=== PATIENT | female | born 1945 | race Two or more races ===

== ENCOUNTER 2016-05-24 18:43 | Emergency (ER) | payer MEDICARE, OTHER ==
[~2016-05-24] VITALS: Ht 152.4 cm; Wt 59.0 kg
[~2016-05-24 18:43] MED LIST: ARMOUR THYROID30 MG ORAL; ASPIRIN EC325 MG ORAL; BENICAR20 MG ORAL; DIOVAN80 MG ORAL; GUAIFENESIN DM118 M1 ORAL; GUAIFENESIN-CO118 ML ORAL; INDERAL LA60 MG ORAL; MECLIZINE HCL25 MG ORAL; METFORMIN HCL500 M1 ORAL; NORCO 5-325 TA1 EACH ORAL; PANTOPRAZOLE SO40 MG ORAL; PLAQUENIL200 MG ORAL; TOPIRAMATE25 MG ORAL; ZANTAC150 MG ORAL; ZOCOR10 MG ORAL
[2016-05-24] MEDS ORDERED: Bacitracin Oint UD TOPIC ONE (19:45)
[2016-05-24] MEDS ORDERED: Lidocaine 1% MPF 10mg/ml 5ml IM ONE (19:45)
[2016-05-24] MEDS ORDERED: CEPHALEXIN500 MG ORAL (20:05)
[2016-05-24] MEDS ORDERED: Cephalexin 500mg cap ORAL ONE (20:15)
[2016-05-24 20:36] VITALS: BP 130/67
[2016-05-24 20:38] VITALS: BP 130/76
--- NOTE | 2016-05-25 17:18 | Emergency Room Report ---
History of Present Illness General Chief Complaint: Skin Rash/Abscess Present Illness HPI The patient is a 71-year-old female presenting with left ring finger pain which began 2 days prior. Patient noticed swelling and redness to the area. Patient denies any known injury and denies biting her fingernails. Pain is worse with touch. It is described as an 8/10 dull ache. The patient denies any numbness or tingling of the area. Patient denies other symptoms including nausea, vomiting, fever, chills Allergies: Coded Allergies: NO KNOWN ALLERGIES (Unverified Allergy, Unknown, 03/14/15) Patient History Past Medical History: see triage record Pertinent Family History: none Reviewed Nursing Documentation: PMH: Agreed, PSxH: Agreed Nursing Documentation-PMH Hx Cardiac Problems: Yes Hx Hypertension: Yes Hx Pacemaker: No - LUPUS Hx Diabetes: Yes Hx Gastrointestinal Problems: Yes Hx Dialysis: No Review of Systems All Other Systems: negative except mentioned in HPI Physical Exam Vital Signs Date Time Temp Pulse Resp B/P Pulse Ox O2 Delivery O2 Flow Rate FiO2 05/24/16 18:53 98.2 81 20 130/67 100 Room Air Sp02 EP Interpretation: reviewed, normal General Appearance: no apparent distress, alert, GCS 15, non-toxic Head: normocephalic, atraumatic Eyes: bilateral eye PERRL, bilateral eye normal inspection ENT: hearing grossly normal, normal pharynx, no angioedema, normal voice Neck: full range of motion, supple/symm/no masses Musculoskeletal: back normal, gait/station normal, normal range of motion, swelling, tender - TTP over lateral ring folder nailfold Neurologic: alert, oriented x3, responsive, motor strength/tone normal, sensory intact, speech normal Skin: normal color, no rash, warm/dry, well hydrated Lymphatic: no adenopathy Procedures Incision and Drainage Incision and Drainage : Consent: Verbal Site: L ring finger Blade Size: 11 I & D Procedure: betadine prep, sterile drapes applied, sterile dressing applied Wound Location: upper extremity Wound's Depth, Shape: superficial Wound Length (cm): 1 Wound Explored: contaminated Irrigated w/ Saline (ccs): 50 Anesthesia: 1% Lidocaine Volume Anesthetic (ccs): 4 Splint Applied?: No Sling Applied?: No Patient Tolerated: Well Complications: None Medical Decision Making PA Attestation Dr. Nassar is my supervising physician. Patient management was discussed with my supervising physician Diagnostic Impression: Primary Impression: Paronychia ER Course The patient is a 71-year-old female presenting with left ring finger pain which began 2 days prior Differential diagnosis considered: Felon, paronychia, sprain PE: vitals WNL. NAD TTP over lateral ring folder nailfold with erythema and edema. Area is fluctuant. Full AROM. Betadine prep was used to clean the skin and surrounding area. One percent lidocaine without epinephrine was used for digital block. A #11 blade was used to make an incision at the base of the nail. Once the incision was made, purulent material was expressed with blood. The wound was then cleaned and sterile dressing applied. The patient will be discharged home with a prescription for Keflex. ER precautions are given Last Vital Signs Date Time Temp Pulse Resp B/P Pulse Ox O2 Delivery O2 Flow Rate FiO2 05/24/16 20:38 78 16 130/76 97 Room Air 05/24/16 20:36 98.0 Status: improved Disposition: HOME, SELF-CARE Condition: Improved Scripts Cephalexin* (KEFLEX*) 500 Mg Capsule 500 MG ORAL EVERY 6 HOURS, #28 CAP Prov: SERGEY RAMOS 05/24/16 Patient Instructions: Paronychia Additional Instructions: I discussed my findings with the patient. All questions and concerns have been answered. Treatment and medication compliance have been addressed. I advised the patient that they need to follow up with PMD in 3-5 days. Return to ED if symptoms worsen, new symptoms arise, or if needed for any reason. Patient verbalized understanding of discharge instructions. SERGEY RAMOS May 25, 2016 17:18
== END 2016-05-24 20:40 | disposition home or self-care (01) ==
LOC: EMR 19:50
DX: L03.012 Cellulitis of left finger (principal); E11.9 Type 2 diabetes mellitus without complications; I10 Essential (primary) hypertension; M32.9 Systemic lupus erythematosus, unspecified
CPT/HCPCS: 10060; 99284

== ENCOUNTER 2016-09-14 14:24 | Emergency (ER) | payer MEDICARE, OTHER ==
[~2016-09-14] VITALS: Ht 152.4 cm; Wt 59.0 kg
[~2016-09-14 14:24] MED LIST changes: +CEPHALEXIN500 MG ORAL
[2016-09-14] MEDS ORDERED: ISOSORBIDE MONO10 MG PO (14:46)
[2016-09-14] MEDS ORDERED: CARDIZEM60 MG ORAL (14:46)
[2016-09-14] MEDS ORDERED: AMOXICILLIN500 MG ORAL (15:06)
[2016-09-14] MEDS ORDERED: PROMETHAZI6.25 MG/1 ORAL (15:06)
[2016-09-14 15:08] VITALS: BP 109/70
[2016-09-14 15:12] VITALS: BP 109/70
--- NOTE | 2016-09-14 18:24 | Emergency Room Report ---
History of Present Illness General Chief Complaint: Flu Like Symptoms Source: Patient Present Illness HPI 71-year-old female presents to ED for evaluation. States the last 4 days she's had a productive cough. Denies sore throat or earache. Denies fevers or chills. Denies sick contacts or recent travel. No other aggravating or relieving factors. Denies any other associated symptoms Allergies: Coded Allergies: NO KNOWN ALLERGIES (Unverified Allergy, Unknown, 03/14/15) Patient History Past Medical History: DM, HTN Past Surgical History: none Pertinent Family History: none Social History: Denies: alcohol use, drug use, smoking Now: No Immunizations: UTD Reviewed Nursing Documentation: PMH: Agreed, PSxH: Agreed Nursing Documentation-PMH Hx Cardiac Problems: Yes Hx Hypertension: Yes Hx Pacemaker: No - LUPUS Hx Diabetes: Yes Hx Gastrointestinal Problems: Yes Hx Dialysis: No Review of Systems All Other Systems: negative except mentioned in HPI Physical Exam Vital Signs Date Time Temp Pulse Resp B/P Pulse Ox O2 Delivery O2 Flow Rate FiO2 09/14/16 14:42 98.4 67 20 109/70 100 Room Air Sp02 EP Interpretation: reviewed, normal General Appearance: no apparent distress, alert, GCS 15, non-toxic Head: normocephalic, atraumatic Eyes: bilateral eye PERRL, bilateral eye normal inspection ENT: hearing grossly normal, normal pharynx, no angioedema, normal voice Neck: full range of motion, supple/symm/no masses Respiratory: chest non-tender, lungs clear, normal breath sounds, speaking full sentences Cardiovascular #1: regular rate, rhythm, no edema Cardiovascular #2: 2+ carotid (R), 2+ carotid (L), 2+ radial (R), 2+ radial (L) , 2+ dorsalis pedis (R), 2+ dorsalis pedis (L) Gastrointestinal: normal bowel sounds, non tender, soft, non-distended, no guarding, no rebound Rectal: deferred Genitourinary: normal inspection, no CVA tenderness Musculoskeletal: back normal, gait/station normal, normal range of motion, non- tender Neurologic: alert, oriented x3, responsive, motor strength/tone normal, sensory intact, speech normal Psychiatric: judgement/insight normal, memory normal, mood/affect normal, no suicidal/homicidal ideation Reflexes: 3+ bicep (R), 3+ bicep (L), 3+ tricep (R), 3+ tricep (L), 3+ knee (R) , 3+ knee (L) Skin: normal color, no rash, warm/dry, well hydrated Lymphatic: no adenopathy Medical Decision Making Diagnostic Impression: Primary Impression: Atypical pneumonia ER Course Hospital Course 71-year-old male presents to ED complaining of cough, runny nose Differential diagnoses include: URI, pharyngitis, otitis media, asthma Clinical course Patient placed on stretcher. After initial history, physical exam reveals an elderly female in no acute distress. Bilateral TM unremarkable. No pharyngeal erythema. No tonsillar exudates. No lymphadenopathy. lungs clear. abdomen soft. Presentation consistent with atypical pneumonia. Patient appears well, nontoxic. Can be discharged to home. We will treat with antibiotics Diagnosis - atypical pneumonia Stable and discharged home prescription for amoxicillin, cough syrup. Instructed to followup with PMD. Return to ED if symptoms recur or worsen Last Vital Signs Date Time Temp Pulse Resp B/P Pulse Ox O2 Delivery O2 Flow Rate FiO2 09/14/16 15:12 98.4 75 20 109/70 100 Room Air Status: improved Disposition: HOME, SELF-CARE Condition: Stable Scripts Promethazine Hcl (PROMETHAZINE HCL*) 6.25 Mg/5 Ml Syrup 5 ML ORAL Q6H, #120 ML 0 Refills Prov: JOSUÉ DIAZ M.D. 09/14/16 Amoxicillin* (AMOXIL*) 500 Mg Capsule 500 MG ORAL THREE TIMES A DAY, #21 CAP Prov: JOSUÉ DIAZ M.D. 09/14/16 Referrals: NOT CHOSEN IPA/,REFERRING (PCP) Patient Instructions: Community-Acquired Pneumonia, Adult, [id number] JOSUÉ DIAZ M.D. Sep 14, 2016 18:24
== END 2016-09-14 15:12 | disposition home or self-care (01) ==
LOC: EMR 15:01
DX: J18.9 Pneumonia, unspecified organism (principal); I10 Essential (primary) hypertension; M32.9 Systemic lupus erythematosus, unspecified; E11.9 Type 2 diabetes mellitus without complications
CPT/HCPCS: 99284

== ENCOUNTER 2016-11-06 15:52 | Emergency (ER) | payer MEDICARE, OTHER ==
[~2016-11-06] VITALS: Ht 142.2 cm; Wt 73.5 kg
[~2016-11-06 15:52] MED LIST changes: +AMOXICILLIN500 MG ORAL; +CARDIZEM60 MG ORAL; +ISOSORBIDE MONO10 MG PO; +PROMETHAZI6.25 MG/1 ORAL
[2016-11-06 16:40] VITALS: BP 120/58
[2016-11-06 16:50] LABS: BASOPHILS % (AUTO) 1.4 % (0.0-2.0); EOSINOPHILS % (AUTO) 2.4 % (0.0-3.0); LYMPHOCYTES % (AUTO) 38.5 % (20.0-45.0); MEAN CORPUSCULAR HEMOGLOBIN 31.3 PG (27.0-31.0); MEAN CORPUSCULAR HGB CONC 35.3 G/DL (32.0-36.0); MEAN CORPUSCULAR VOLUME 89 FL (80-99); MEAN PLATELET VOLUME 7.4 FL (6.5-10.1); MONOCYTES % (AUTO) 10.5 % (1.0-10.0); NEUTROPHILS % (AUTO) 47.2 % (45.0-75.0); PLATELET COUNT 218 K/UL (150-450); RED BLOOD COUNT 4.23 M/UL (4.20-5.40); RED CELL DISTRIBUTION WIDTH 11.7 % (11.6-14.8); WHITE BLOOD COUNT 6.5 K/UL (4.8-10.8)
[2016-11-06 16:51] LABS: APPEARANCE,URINE CLEAR; KETONES,URINE NEGATIVE (NEGATIVE); LEUKOCYTE ESTERASE ,URINE NEGATIVE (NEGATIVE); NITRITE,URINE NEGATIVE (NEGATIVE); PH,URINE 5 (4.5-8.0); PROTEIN,URINE NEGATIVE (NEGATIVE); UROBILINOGEN,URINE NORMAL MG/DL (0.0-1.0)
[2016-11-06 16:55] LABS: RBC,URINE 0-2 /HPF (0 - 2); WBC,URINE 0-2 /HPF (0 - 2)
[2016-11-06 16:56] LABS: SQUAMOUS EPITHELIAL CELL,UR OCCASIONAL /LPF (NONE/OCC)
[2016-11-06 17:02] LABS: INR 0.9 (0.9-1.1); PROTHROMBIN TIME 9.5 SEC (9.30-11.50)
[2016-11-06 17:24] LABS: TROPONIN I < 0.30 ng/mL (<=0.30)
[2016-11-06 17:27] LABS: ALANINE AMINOTRANSFERASE 13 U/L (3-33); ALBUMIN/GLOBULIN RATIO 1.3 (1.0-2.7); ANION GAP 11 (5-15); ASPARTATE AMINO TRANSFERASE 19 U/L (5-40); CALCIUM 8.3 mg/dL (8.6-10.2); CARBON DIOXIDE 26 mEQ/L (20-30); CHLORIDE 102 mEQ/L (98-107); CREATININE 0.8 mg/dL (0.5-0.9); GLOMERULAR FILTRATION RATE > 60 mL/min (>60); HEMOLYSIS 7; LIPASE 51 U/L (< 60); SODIUM 139 mEQ/L (135-145); TOTAL PROTEIN 6.7 g/dL (6.6-8.7)
[2016-11-06 18:00] VITALS: BP 129/66
[2016-11-06] MEDS ORDERED: NITROFURANTOIN100 M2 ORAL (18:33)
[2016-11-06] MEDS ORDERED: IBUPROFEN600 MG ORAL (18:33)
[2016-11-06 18:39] VITALS: BP 120/58
--- NOTE | 2016-11-06 22:10 | Emergency Room Report ---
Physical Exam Vital Signs Date Time Temp Pulse Resp B/P Pulse Ox O2 Delivery O2 Flow Rate FiO2 11/06/16 16:04 99.0 60 15 120/58 99 Room Air Sp02 EP Interpretation: reviewed, normal General Appearance: no apparent distress, alert, GCS 15, non-toxic Head: normocephalic, atraumatic Eyes: bilateral eye PERRL, bilateral eye normal inspection ENT: hearing grossly normal, normal pharynx, no angioedema, normal voice Respiratory: chest non-tender, lungs clear, normal breath sounds, speaking full sentences Cardiovascular #1: regular rate, rhythm, no edema Gastrointestinal: tenderness - suprapubic Genitourinary: normal inspection, no CVA tenderness Musculoskeletal: back normal, gait/station normal, normal range of motion, non- tender Neurologic: alert, oriented x3, responsive, motor strength/tone normal, sensory intact, speech normal Psychiatric: judgement/insight normal, memory normal, mood/affect normal, no suicidal/homicidal ideation Skin: normal color, no rash, warm/dry, well hydrated Medical Decision Making PA Attestation Dr. Keane is my supervising physician. Patient management was discussed with my supervising physician Diagnostic Impression: Primary Impression: Cystitis ER Course The patient is a 71 yo F presenting for abdominal pain DDx considered but not limited to: cystitis, pyelonephritis, cystocele, constipation, diverticulitis, among others PE: afebrile. NAD + Suprapubic TTP. Abd is soft. Normal BS. No CVA tenderness. Otherwise exam unremarkable. Blood work unremarkable. No leukocytosis. UA not consistent with UTI. CT scan has findings consistent with cystitis. Due to patient's history of frequent UTIs and CT findings, pt will be treated for UTI. ER precautions given. She will FU with PMD Laboratory Tests Test 11/06/16 16:35 White Blood Count 6.5 K/UL (4.8-10.8) Red Blood Count 4.23 M/UL (4.20-5.40) Hemoglobin 13.3 G/DL (12.0-16.0) Hematocrit 37.6 % (37.0-47.0) Mean Corpuscular Volume 89 FL (80-99) Mean Corpuscular Hemoglobin 31.3 PG (27.0-31.0) H Mean Corpuscular Hemoglobin Concent 35.3 G/DL (32.0-36.0) Red Cell Distribution Width 11.7 % (11.6-14.8) Platelet Count 218 K/UL (150-450) Mean Platelet Volume 7.4 FL (6.5-10.1) Neutrophils (%) (Auto) 47.2 % (45.0-75.0) Lymphocytes (%) (Auto) 38.5 % (20.0-45.0) Monocytes (%) (Auto) 10.5 % (1.0-10.0) H Eosinophils (%) (Auto) 2.4 % (0.0-3.0) Basophils (%) (Auto) 1.4 % (0.0-2.0) Prothrombin Time 9.5 SEC (9.30-11.50) Prothrombin Time INR 0.9 (0.9-1.1) PTT 25 SEC (23-33) Urine Color Pale yellow Urine Appearance Clear Urine pH 5 (4.5-8.0) Urine Specific [place] 1.020 (1.005-1.035) Urine Protein Negative (NEGATIVE) Urine Glucose (UA) 4+ (NEGATIVE) H Urine Ketones Negative (NEGATIVE) Urine Occult Blood 1+ (NEGATIVE) H Urine Nitrite Negative (NEGATIVE) Urine Bilirubin Negative (NEGATIVE) Urine Urobilinogen Normal MG/DL (0.0-1.0) Urine Leukocyte Esterase Negative (NEGATIVE) Urine RBC 0-2 /HPF (0 - 2) Urine WBC 0-2 /HPF (0 - 2) Urine Squamous Epithelial Cells Occasional /LPF Urine Bacteria None /HPF (NONE) Sodium Level 139 mEQ/L (135-145) Potassium Level 4.0 mEQ/L (3.4-4.9) Chloride Level 102 mEQ/L (98-107) Carbon Dioxide Level 26 mEQ/L (20-30) Anion Gap 11 (5-15) Blood Urea Nitrogen 14 mg/dL (7-23) Creatinine 0.8 mg/dL (0.5-0.9) Estimate Glomerular Filtration Rate > 60 mL/min (>60) Glucose Level 108 mg/dL (74-106) H Calcium Level 8.3 mg/dL (8.6-10.2) L Total Bilirubin 0.2 mg/dL (0.0-1.2) Aspartate Amino Transferase (AST) 19 U/L (5-40) Alanine Aminotransferase (ALT) 13 U/L (3-33) Alkaline Phosphatase 80 U/L (35-104) Troponin I < 0.30 ng/mL (<=0.30) Total Protein 6.7 g/dL (6.6-8.7) Albumin 3.9 g/dL (3.5-5.2) Globulin 2.8 g/dL Albumin/Globulin Ratio 1.3 (1.0-2.7) Lipase 51 U/L (< 60) Lab Results Impression Unremarkable CT/MRI/US Diagnostic Results CT/MRI/US Diagnostic Results : Imaging Test Ordered: Abd/pelvic CT Impression No acute abnormality identified. Cholecystectomy. Bladder underdistention versus mild wall thickening. Cystitis not excluded and correlation with urinalysis recommended. Small fat-containing left inguinal hernia. Atherosclerotic changes. Approximately 3.4 cm left adnexal hypodense possible cyst. Pelvic ultrasound recommended for further evaluation Last Vital Signs Date Time Temp Pulse Resp B/P Pulse Ox O2 Delivery O2 Flow Rate FiO2 11/06/16 18:39 99.0 61 15 120/58 99 Room Air Status: improved Disposition: HOME, SELF-CARE Condition: Improved Scripts Ibuprofen* (MOTRIN*) 600 Mg Tablet 600 MG ORAL Q8H Y for For Pain, #30 TAB 0 Refills Prov: TERZIANELSIEY P.A. 11/06/16 Nitrofurantoin Monohyd/M-Cryst* (MACROBID 100 MG*) 100 Mg Capsule 100 MG ORAL EVERY 12 HOURS, #14 CAP Prov: TERZIAN,SERGEY P.A. 11/06/16 Patient Instructions: Urinary Tract Infection, Abdominal Pain, Adult Additional Instructions: I discussed my findings with the patient. All questions and concerns have been answered. Treatment and medication compliance have been addressed. I advised the patient that they need to follow up with PMD in 3-5 days. Return to ED if symptoms worsen, new symptoms arise, or if needed for any reason. Patient verbalized understanding of discharge instructions. History of Present Illness General Source: Patient Present Illness HPI The patient is a 71 yo F presenting for abdominal pain which began today. She states that she frequently gets UTIs and this feels similar. She states pain is a 8/10 dull ache to mid lower abdomen and does not radiate. She also admits to increased urinary frequency. She denies other symptoms including N, V, F, hematuria, vaginal DC, back pain, SOB, CP, diarrhea, constipation Allergies: Coded Allergies: NO KNOWN ALLERGIES (Unverified Allergy, Unknown, 03/14/15) Patient History Past Medical History: see triage record Pertinent Family History: none Now: No Reviewed Nursing Documentation: PMH: Agreed, PSxH: Agreed Nursing Documentation-PMH Hx Cardiac Problems: Yes Hx Hypertension: Yes Hx Pacemaker: No - LUPUS Hx Diabetes: Yes Hx Gastrointestinal Problems: Yes Hx Dialysis: No Review of Systems All Other Systems: negative except mentioned in HPI SERGEY RAMOS Nov 06, 2016 22:10
--- NOTE | 2016-11-08 08:18 | Diagnostic Imaging Report ---
Indication: Abdominal pain Technique: CT of the abdomen and pelvis utilizing automated exposure control with intravenous contrast. Venous scanning performed. CT dose: Total DLP 850 mGycm; CTDI vol 18.4 mGy Comparison: None Findings: There is limited evaluation of the bowel without oral contrast. There is a 5 mm cyst in the left lobe of the liver. Cholecystectomy is noted. Adrenal glands, kidneys, spleen and the pancreas are grossly unremarkable the abdominal aorta demonstrates atherosclerotic calcification but is normal in caliber. There is underdistention versus mild thickening of the urinary bladder. A small fat-containing left inguinal hernia is seen. The small bowel loops are normal in caliber. There is a tiny appendicolith. The appendix is otherwise normal. There is colonic diverticulosis but no definitive evidence of diverticulitis a left adnexal hypodense structure measures 3.4 cm. Degenerative changes of the spine are seen. There is grade 1 anterolisthesis of L5 on S1. Impression: No acute abnormality identified. Cholecystectomy. Bladder underdistention versus mild wall thickening. Cystitis not excluded and correlation with urinalysis recommended. Small fat-containing left inguinal hernia. Atherosclerotic changes. Approximately 3.4 cm left adnexal hypodense possible cyst. Pelvic ultrasound recommended for further evaluation. Other findings as above. The CT scanner at [facility] is accredited by the [employer] and the scans are performed using protocols designed to limit radiation exposure to as low as reasonably achievable to attain images of sufficient resolution adequate for diagnostic evaluation.
== END 2016-11-06 18:39 | disposition home or self-care (01) ==
LOC: EMR 16:21
DX: N30.90 Cystitis, unspecified without hematuria (principal); Z90.49 Acquired absence of other specified parts of digestive tract; K40.90 Unilateral inguinal hernia, without obstruction or gangrene, not specified as recurrent; I10 Essential (primary) hypertension; E11.9 Type 2 diabetes mellitus without complications
CPT/HCPCS: 36415; 74177; 80053; 81003; 83690; 84484; 85025; 85610; 85730; 99284; Q9967

== ENCOUNTER 2017-02-07 18:58 | Emergency (ER) | payer MEDICARE, OTHER ==
[~2017-02-07] VITALS: Ht 154.9 cm; Wt 69.9 kg
[~2017-02-07 18:58] MED LIST changes: +IBUPROFEN600 MG ORAL; +NITROFURANTOIN100 M2 ORAL
--- NOTE | 2017-02-07 19:20 | Emergency Room Report ---
History of Present Illness General Chief Complaint: Headache Source: Patient Present Illness HPI 72-year-old female, history of hypertension, lupus, p/w GLEASON and bilateral neck pain for 3 days. Patient describes GLEASON as gradual in onset, sharp in nature, localized to front of head, and bilateral neck, non-radiating, constant, 5 of 10 in severity. Denies photophobia, phonophobia. Bilateral neck pain is worse with movement Patient denies history of headaches, states that she has been taking Motrin without relief Denies fever, chills, blurry vision, motor/sensory weakness. Denies any nausea or vomiting. Patient came to the emergency room by taking the bus and walking here by herself Allergies: Coded Allergies: NO KNOWN ALLERGIES (Unverified Allergy, Unknown, 03/14/15) Patient History Past Medical History: see triage record Past Surgical History: none Pertinent Family History: none Reviewed Nursing Documentation: PMH: Agreed, PSxH: Agreed Nursing Documentation-PMH Hx Hypertension: Yes Hx Pacemaker: No - LUPUS Hx Diabetes: Yes Hx Gastrointestinal Problems: Yes Hx Dialysis: No Review of Systems All Other Systems: negative except mentioned in HPI Physical Exam Vital Signs Date Time Temp Pulse Resp B/P (MAP) Pulse Ox O2 Delivery O2 Flow Rate FiO2 02/07/17 19:04 98.1 72 20 153/93 98 Room Air Sp02 EP Interpretation: reviewed, normal General Appearance: alert, GCS 15, non-toxic, mild distress Head: normocephalic, atraumatic Eyes: bilateral eye normal inspection, bilateral eye PERRL, bilateral eye EOMI ENT: normal ENT inspection, normal pharynx, normal voice, moist mucus membranes Neck: normal inspection, full range of motion, supple Respiratory: normal inspection, lungs clear, normal breath sounds, no respiratory distress, no retraction, no wheezing, speaking full sentences, chest symmetrical Cardiovascular #1: normal inspection, regular rate, rhythm, normal capillary refill Cardiovascular #2: 2+ radial (R), 2+ radial (L) Gastrointestinal: normal inspection, non tender, soft, non-distended, no guarding Musculoskeletal: normal inspection, back normal, normal range of motion, non- tender Neurologic: normal inspection, alert, oriented x3, responsive, nuclear reactor engineer III-XII nml as tested, motor strength/tone normal, sensory intact, normal gait, speech normal Psychiatric: normal inspection, judgement/insight normal, memory normal Skin: normal inspection, normal color, no rash, warm/dry, well hydrated, normal turgor Medical Decision Making Diagnostic Impression: Primary Impression: Headache ER Course 72-year-old female with headache for 3 days, no trauma DDX: Primary GLEASON such as migraine, tension GLEASON, cluster. vs. dehydration Other serious diagnoses on differential such as intracranial bleed/sah, meningitis/encephalitis, tumor, is possible however less likely, however patients H&P is more consistent with benign etiology at this time Plan: Pain control with Motrin and Robaxin CT head ER course: Patient feels much better with meds. Patient continues to appear nontoxic, aox3, no neurologic symptoms. CT neg Disposition: Patient will be discharged to home. Patient instructed to follow up with primary care doctor within 5 days. Patient also instructed to follow up with a neurologist within 1 week. Strict return precautions discussed with patient such as severe/worsening headache, nausea, vomiting, fever chills, neck pain. Patient verbalized understanding. Please note that this Emergency Department Report was dictated using [employer] tutor technology software, occasionally this can lead to erroneous entry secondary to interpretation by the dictation equipment. CT/MRI/US Diagnostic Results CT/MRI/US Diagnostic Results : Imaging Test Ordered: CT Head Impression Comparison: CT head 03/14/15 IMPRESSION: No acute intracranial finding or significant interval change. No acute intracranial hemorrhage. No evidence of intracranial mass, extra-axial fluid collection, or acute territorial infarct. Trace mucosal thickening left sphenoid sinus. Visualized paranasal sinuses and mastoid air cells are otherwise clear. Last Vital Signs Date Time Temp Pulse Resp B/P (MAP) Pulse Ox O2 Delivery O2 Flow Rate FiO2 02/07/17 19:04 98.1 72 20 153/93 98 Room Air Disposition: HOME, SELF-CARE Condition: Improved Scripts Methocarbamol* (ROBAXIN-750*) 750 Mg Tablet 750 MG PO QID, #28 TAB 0 Refills Prov: Monica Pineda M.D. 02/07/17 Acetaminophen* (TYLENOL EXTRA STRENGTH*) 500 Mg Tablet 500 MG ORAL Q8H Y for Prn Headache/Temp > 101, #30 TAB 0 Refills Prov: Monica Pineda M.D. 02/07/17 Monica Pineda M.D. Feb 07, 2017 19:20
[2017-02-07] MEDS ORDERED: Methocarbamol 750mg tab ORAL ONE (19:30)
[2017-02-07] MEDS ORDERED: TYLENOL EXTRA500 MG ORAL (20:24)
[2017-02-07] MEDS ORDERED: ROBAXIN-750750 MG PO (20:24)
[2017-02-07 20:58] VITALS: BP 145/76
[2017-02-07 21:00] VITALS: BP 145/76
--- NOTE | 2017-02-08 10:18 | Diagnostic Imaging Report ---
Indication: Headache Technique: Contiguous 5 mm thick transaxial imaging of the head obtained in a Siemens Sensation [address] scanner. Soft tissue and bone windows generated. Automatic Exposure Control was utilized. Total Dose length Product (DLP): [address] Dose Index Volume (CTDIvol): 70.38, 0.15 mGy Comparison: 03/14/15 Findings: Mild, nonspecific, white matter hypoattenuation is noted throughout the brain consistent with chronic small vessel disease. There is no midline shift, edema, acute hemorrhage, mass effect, or abnormal extra-axial fluid collections. Bones and extra osseous soft tissues are unremarkable. Impression: No acute intracranial bleed, mass effect or edema. Nonspecific white matter hypoattenuation probably due to chronic small vessel disease. [facility] has communicated the preliminary results to the Emergency Department. Their findings are largely concordant with this report. The CT scanner at [facility] is accredited by the [employer] and the scans are performed using dose optimization techniques as appropriate to a performed exam including Automatic Exposure control.
== END 2017-02-07 21:00 | disposition home or self-care (01) ==
LOC: EMR 20:46
DX: R51 Headache (principal); I10 Essential (primary) hypertension; M32.9 Systemic lupus erythematosus, unspecified; E11.9 Type 2 diabetes mellitus without complications; Z87.19 Personal history of other diseases of the digestive system
CPT/HCPCS: 70450; 99284

== ENCOUNTER 2017-07-10 16:24 | Inpatient (IN) | payer MEDICARE, OTHER ==
[~2017-07-10] VITALS: Ht 149.9 cm; Wt 59.0 kg
[~2017-07-10 16:24] MED LIST changes: +ROBAXIN-750750 MG PO; +TYLENOL EXTRA500 MG ORAL
[2017-07-10 16:38] VITALS: BP 149/89
--- NOTE | 2017-07-10 16:57 | Emergency Room Report ---
History of Present Illness General Chief Complaint: Chest Pain Source: Patient Present Illness HPI 72-year-old female, history of hypertension, gastritis/reflux, p/w epigastric abd pain and chest pain for one day. Patient states pain started gradually , localized to epigastric area, non radiating, burning in nature, intermittent. No relieving or exacerbating factors. Also complaining of substernal chest pain. No palpitations or shortness of breath. Pain is nonexertional. Pt reports nausea but no vomiting. No constipation or diarrhea Denies fever, chills. Has a history of cholecystectomy. Last cardiac stress test within the last 3 months, and was normal Allergies: Coded Allergies: NO KNOWN ALLERGIES (Unverified Allergy, Unknown, 03/14/15) Patient History Past Medical History: see triage record Past Surgical History: none Pertinent Family History: none Reviewed Nursing Documentation: PMH: Agreed; PSxH: Agreed Nursing Documentation-PMH Hx Hypertension: Yes Hx Pacemaker: No - LUPUS Hx Diabetes: Yes Hx Gastrointestinal Problems: Yes Hx Dialysis: No Review of Systems All Other Systems: negative except mentioned in HPI Physical Exam Vital Signs Date Time Temp Pulse Resp B/P (MAP) Pulse Ox O2 Delivery O2 Flow Rate FiO2 07/10/17 16:28 98.2 81 20 149/89 95 Room Air 98.2 Sp02 EP Interpretation: reviewed, normal General Appearance: alert, GCS 15, non-toxic, moderate distress Head: normocephalic, atraumatic Eyes: bilateral eye normal inspection, bilateral eye PERRL, bilateral eye EOMI ENT: normal ENT inspection, normal pharynx, normal voice, moist mucus membranes Neck: normal inspection, full range of motion, supple Respiratory: normal inspection, lungs clear, normal breath sounds, no respiratory distress, no retraction, no wheezing, speaking full sentences, chest symmetrical Cardiovascular #1: normal inspection, regular rate, rhythm, normal capillary refill Cardiovascular #2: 2+ radial (R), 2+ radial (L) Gastrointestinal: soft, non-distended, no guarding, other - c/o pain however nontender abdomen throughout, no guarding or rigidity Genitourinary: no CVA tenderness Musculoskeletal: normal inspection, back normal, normal range of motion, non- tender Neurologic: normal inspection, alert, oriented x3, responsive, motor strength/ tone normal, sensory intact, normal gait, speech normal Psychiatric: normal inspection, judgement/insight normal, memory normal Skin: normal inspection, normal color, no rash, warm/dry, well hydrated, normal turgor Medical Decision Making Diagnostic Impression: Primary Impression: Pancreatitis ER Course 72-year-old female p/w CP and epigastric pain DDX: ACS vs. CHF vs. pneumonia vs. gastritis/GERD vs. pancreatitis versus pneumothorax Plan: IV access, obtain labs including troponin, EKG, CXR ASA, Zofran, Pepcid, GI cocktail ER course: Patient has remained stable during ED stay. noted to have acute pancreatitis denies any alcohol use, no hx of pancreatitis Disposition: Patient is to be admitted to TELE Dr Diego Please note that this Emergency Department Report was dictated using [employer] developer technology software, occasionally this can lead to erroneous entry secondary to interpretation by the dictation equipment EKG Diagnostic Results EP Interpretation: Yes Rate: normal Rhythm: NSR ST Segments: No acute changes ASA given to patient: Y Rhythm Strip EP Interpretation: Yes Rate: 70 Rhythm: NSR, no PVCs, no ectopy Chest X-ray CXR: Ordered: Yes 1 view Indication: Chest pain EP interpretation: Yes Interpretation: No consolidation, no effusion, no PTX, no acute cardiopulmonary disease Impression: No acute disease Electronically signed by Monica Pineda MD Laboratory Tests Test 07/10/17 16:47 White Blood Count 13.7 K/UL (4.8-10.8) H Red Blood Count 4.65 M/UL (4.20-5.40) Hemoglobin 13.7 G/DL (12.0-16.0) Hematocrit 40.3 % (37.0-47.0) Mean Corpuscular Volume 87 FL (80-99) Mean Corpuscular Hemoglobin 29.4 PG (27.0-31.0) Mean Corpuscular Hemoglobin Concent 34.0 G/DL (32.0-36.0) Red Cell Distribution Width 11.6 % (11.6-14.8) Platelet Count 258 K/UL (150-450) Mean Platelet Volume 7.6 FL (6.5-10.1) Neutrophils (%) (Auto) 84.0 % (45.0-75.0) H Lymphocytes (%) (Auto) 9.8 % (20.0-45.0) L Monocytes (%) (Auto) 5.6 % (1.0-10.0) Eosinophils (%) (Auto) 0.1 % (0.0-3.0) Basophils (%) (Auto) 0.5 % (0.0-2.0) Urine Color Pale yellow Urine Appearance Clear Urine pH 8 (4.5-8.0) Urine Specific [place] 1.010 (1.005-1.035) Urine Protein 1+ (NEGATIVE) H Urine Glucose (UA) Negative (NEGATIVE) Urine Ketones 3+ (NEGATIVE) H Urine Occult Blood 2+ (NEGATIVE) H Urine Nitrite Negative (NEGATIVE) Urine Bilirubin Negative (NEGATIVE) Urine Urobilinogen Normal MG/DL (0.0-1.0) Urine Leukocyte Esterase 2+ (NEGATIVE) H Urine RBC 5-10 /HPF (0 - 2) H Urine WBC 2-4 /HPF (0 - 2) Urine Squamous Epithelial Cells Moderate /LPF (NONE/OCC) H Urine Bacteria Few /HPF (NONE) Sodium Level 136 MMOL/L (136-145) Potassium Level 3.8 MMOL/L (3.5-5.1) Chloride Level 101 MMOL/L (98-107) Carbon Dioxide Level 27 MMOL/L (21-32) Anion Gap 9 mmol/L (5-15) Blood Urea Nitrogen 10 mg/dL (7-18) Creatinine 0.7 MG/DL (0.55-1.30) Estimate Glomerular Filtration Rate > 60 mL/min (>60) Glucose Level 126 MG/DL (74-106) H Calcium Level 8.5 MG/DL (8.5-10.1) Total Bilirubin 0.9 MG/DL (0.2-1.0) Aspartate Amino Transferase (AST) 22 U/L (15-37) Alanine Aminotransferase (ALT) 24 U/L (12-78) Alkaline Phosphatase 78 U/L (46-116) Troponin I 0.002 ng/mL (0.000-0.056) Total Protein 8.1 G/DL (6.4-8.2) Albumin 3.9 G/DL (3.4-5.0) Globulin 4.2 g/dL Albumin/Globulin Ratio 0.9 (1.0-2.7) L Lipase 99235 U/L (73-393) H Last Vital Signs Date Time Temp Pulse Resp B/P (MAP) Pulse Ox O2 Delivery O2 Flow Rate FiO2 4/22/18 16:38 81 20 Room Air 07/10/17 16:38 98.2 149/89 95 98.2 Disposition: ADMITTED INPATIENT Condition: Serious Monica Pineda M.D. Jul 10, 2017 16:57
[2017-07-10] MEDS ORDERED: Mylanta II UD 30ml ORAL ONE (17:00)
[2017-07-10] MEDS ORDERED: Lidocaine 2% Visc 15ml soln ORAL ONE (17:00)
[2017-07-10] MEDS ORDERED: Aspirin Baby 81mg ORAL ONE (17:00)
[2017-07-10] MEDS ORDERED: Dicyclomine HCl 10mg/5ml oral soln ORAL ONE (17:00)
[2017-07-10 17:07] LABS: APPEARANCE,URINE CLEAR; BASOPHILS % (AUTO) 0.5 % (0.0-2.0); BILIRUBIN, URINE NEGATIVE (NEGATIVE); COLOR,URINE PALE YELLOW; EOSINOPHILS % (AUTO) 0.1 % (0.0-3.0); GLUCOSE, URINE (UA) NEGATIVE (NEGATIVE); HEMATOCRIT 40.3 % (37.0-47.0); HEMOGLOBIN 13.7 G/DL (12.0-16.0); KETONES,URINE 3+ (NEGATIVE); LEUKOCYTE ESTERASE ,URINE 2+ (NEGATIVE); LYMPHOCYTES % (AUTO) 9.8 % (20.0-45.0); MEAN CORPUSCULAR VOLUME 87 FL (80-99); MONOCYTES % (AUTO) 5.6 % (1.0-10.0); NITRITE,URINE NEGATIVE (NEGATIVE); PH,URINE 8 (4.5-8.0); PLATELET COUNT 258 K/UL (150-450); PROTEIN,URINE 1+ (NEGATIVE); RED BLOOD COUNT 4.65 M/UL (4.20-5.40); RED CELL DISTRIBUTION WIDTH 11.6 % (11.6-14.8); UROBILINOGEN,URINE NORMAL MG/DL (0.0-1.0); WHITE BLOOD COUNT 13.7 K/UL (4.8-10.8)
[2017-07-10 17:15] LABS: ANION GAP 9 mmol/L (5-15); BLOOD UREA NITROGEN 10 mg/dL (7-18); CALCIUM 8.5 MG/DL (8.5-10.1); CARBON DIOXIDE 27 MMOL/L (21-32); CHLORIDE 101 MMOL/L (98-107); CREATININE 0.7 MG/DL (0.55-1.30); POTASSIUM 3.8 MMOL/L (3.5-5.1); SODIUM 136 MMOL/L (136-145)
[2017-07-10 17:20] LABS: ALANINE AMINOTRANSFERASE 24 U/L (12-78); ALBUMIN 3.9 G/DL (3.4-5.0); ALBUMIN/GLOBULIN RATIO 0.9 (1.0-2.7); ALKALINE PHOSPHATASE 78 U/L (46-116); ASPARTATE AMINO TRANSFERASE 22 U/L (15-37); BILIRUBIN,TOTAL 0.9 MG/DL (0.2-1.0)
[2017-07-10] MEDS ORDERED: Morphine Sulfate 4mg/ml Inj IVP ONE (17:30)
[2017-07-10] MEDS ORDERED: PLAQUENIL200 MG ORAL (18:14)
[2017-07-10] MEDS ORDERED: PROPRANOLOL HCL40 MG ORAL (18:14)
[2017-07-10] MEDS ORDERED: ISOSORBIDE MONO20 MG PO (18:14)
[2017-07-10] MEDS ORDERED: LEVOTHYROXINE75 MCG ORAL (18:14)
[2017-07-10] MEDS ORDERED: FOLIC ACID1 MG ORAL (18:14)
[2017-07-10] MEDS ORDERED: VITAMIN D250000 UNI1 ORAL (18:14)
[2017-07-10] MEDS ORDERED: DILTIAZEM 24HR120 MG ORAL (18:15)
[2017-07-10] MEDS ORDERED: ASPIRIN EC81 MG ORAL (18:15)
[2017-07-10] MEDS ORDERED: PRAVASTATIN SOD20 M1 ORAL (18:15)
[2017-07-10 18:42] VITALS: BP 131/84
[2017-07-10 20:00] VITALS: BP 136/61
[2017-07-10] MEDS ORDERED: Nitroglycerin Subl 0.4mg tab SL PRN (22:15)
[2017-07-10] MEDS ORDERED: Morphine Sulfate 4mg/ml Inj IVP PRN ×2 (22:15→22:30)
[2017-07-10] MEDS ORDERED: Milk of Magnesia 30ml Ud ORAL PRN (22:15)
[2017-07-11] MEDS: D5 1/2NS w/KCl 20mEq 1,000 ML IV SCH ×4 (00:15→22:54)
--- NOTE | 2017-07-11 01:00 | Consultation ---
DATE OF CONSULTATION: 07/10/2017 CARDIOLOGY CONSULTATION CONSULTING PHYSICIAN: Nikita Reddy M.D. REQUESTING PHYSICIAN: Zhou Diego M.D. REASON FOR CONSULTATION: Evaluate for cardiac etiology. HISTORY OF PRESENT ILLNESS: This is a 72-year-old female with history of systemic lupus and hypertension. She was seen in the emergency room early this afternoon with epigastric pain and chest pain of one day's duration. The discomfort is burning and nonexertional with no associated shortness of breath, nausea is noted, but no vomiting. The patient has a prior cholecystectomy, but had an elevated lipase level noted. She also had a stress test several months ago, although the results are not available for review, but are reportedly normal. PAST MEDICAL HISTORY: 1. Type 2 diabetes mellitus. 2. Systemic lupus. 3. Hypertension. 4. Prior cholecystectomy. ALLERGIES: None. MEDICATIONS: Reviewed and reconciled. SOCIAL HISTORY: Nonsmoker, no alcohol or substance abuse. REVIEW OF SYSTEMS: All systems negative other than noted above. PHYSICAL EXAMINATION: VITAL SIGNS: Afebrile. Initial blood pressure 149/89, heart rate 81, respiratory rate 20. Now, blood pressure 136/61, heart rate 70, respiratory rate 15. HEENT: Conjunctivae are pink. Sclerae are anicteric. Oropharynx clear. NECK: Supple. No jugular venous distention or bruits. LUNGS: Clear. CARDIAC: Regular, normal S1, S2. No murmur, rub, or gallop. ABDOMEN: Soft, minimally tender in the epigastric region. No guarding or rebound. EXTREMITIES: Without clubbing, cyanosis, or edema. SKIN: Intact with no rashes. LABORATORY DATA: White count 13.7, hemoglobin 13.7. Chemistry panel within normal limits. Lipase . Urinalysis, no active sediment, above 5 to 10 white and red cells are noted. EKG with sinus rhythm and no acute abnormalities. Chest x-ray with no acute process. IMPRESSION: The patient has several risk factors for accelerated coronary disease; however, current diagnostic workup is highly suggestive of acute pancreatitis. In addition, data with recent negative stress test further support, a low likelihood for acute coronary insufficiency. Recommend cardiac monitoring, aspirin prophylaxis, hydration, bowel rest, serial troponins and pancreatic enzymes. Abdominal ultrasound re-evaluation within the next 6 to 12 hours. Nikita Riley Reddy DR: LENNIE JOB#: [id number] CC:
[2017-07-11 04:00] VITALS: BP 112/62
[2017-07-11 08:00] VITALS: BP 122/58
[2017-07-11] MEDS ORDERED: Aspirin EC 81mg tab ORAL SCH (09:00)
[2017-07-11] MEDS ORDERED: Propranolol 40mg tab ORAL SCH (09:00)
[2017-07-11] MEDS ORDERED: Heparin 5000 units/ml inj SUBQ SCH (09:00)
[2017-07-11] MEDS ORDERED: Pantoprazole Inj IV SCH (09:00)
[2017-07-11] MEDS ORDERED: dilTIAZem HCl CD 120mg cap ORAL SCH (09:00)
[2017-07-11] MEDS ORDERED: Docusate 100mg cap ORAL SCH (09:00)
[2017-07-11 10:06] LABS: BASOPHILS % (AUTO) 0.3 % (0.0-2.0); EOSINOPHILS % (AUTO) 0.3 % (0.0-3.0); HEMATOCRIT 36.7 % (37.0-47.0); HEMOGLOBIN 12.7 G/DL (12.0-16.0); LYMPHOCYTES % (AUTO) 18.8 % (20.0-45.0); MEAN CORPUSCULAR VOLUME 87 FL (80-99); MONOCYTES % (AUTO) 6.7 % (1.0-10.0); NEUTROPHILS % (AUTO) 73.8 % (45.0-75.0); PLATELET COUNT 210 K/UL (150-450); RED BLOOD COUNT 4.22 M/UL (4.20-5.40); RED CELL DISTRIBUTION WIDTH 11.6 % (11.6-14.8); WHITE BLOOD COUNT 9.4 K/UL (4.8-10.8)
--- NOTE | 2017-07-11 10:21 | GI Initial Consult Note ---
NeetaMarizol Walter N.P. 07/11/17 1021: History of Present Illness General Date patient seen: Jul 11, 2017 Time patient seen: 10:16 Reason for Hospitalization: Chest Pain Referring physician: TEDDY SINGLETON Reason for Consultation: PANCREATITIS Present Illness HPI 72-year-old female, history of hypertension, gastritis/reflux, p/w epigastric abd pain and chest pain for one day. Patient states pain started gradually , localized to epigastric area, non radiating, burning in nature, intermittent. No relieving or exacerbating factors. Also complaining of substernal chest pain. No palpitations or shortness of breath. Pain is nonexertional. Pt reports nausea but no vomiting. No constipation or diarrhea Denies fever, chills. Has a history of cholecystectomy. Last cardiac stress test within the last 3 months, and was normal GI consulted for pancreatitis with elevated lipase over 10k. Pt seen, awake A& Ox4 NAD with no active s/sx of N/V/D. Has epigastric pain 5/10, tender to touch. Patient has history of cholecystectomy. Last colonoscopy in 2010 with unknown findings. States she is scheduled for EGD in July of this year to evaluate her GERD. She presents today with elevated lipase and mild leukocytosis. Triglycerides within normal limits. Home Meds Reported Medications Pravastatin Sod* (PRAVASTATIN SOD*) 20 Mg Tablet, 40 MG ORAL BEDTIME, TAB 07/10/17 Aspirin Ec* (ASPIRIN EC*) 81 Mg Tablet.dr, 81 MG ORAL DAILY, TAB 07/10/17 Diltiazem Hcl (DILTIAZEM 24HR CD) 120 Mg Cap.er.24h, 120 MG ORAL DAILY, #30 CAP 0 Refills 07/10/17 Ergocalciferol (Vitamin D2)* (VITAMIN D*) 50,000 Unit Capsule, 17349 UNIT ORAL ONCE A WEEK, CAP 07/10/17 Folic Acid* (FOLIC ACID*) 1 Mg Tablet, 1 MG ORAL DAILY, TAB 07/10/17 Hydroxychloroquine Sulfate* (PLAQUENIL*) 200 Mg Tablet, 200 MG ORAL TWICE A DAY , TAB 07/10/17 Propranolol Hcl* (INDERAL*) 40 Mg Tablet, 40 MG ORAL DAILY, #90 TAB 0 Refills 07/10/17 Isosorbide Mononitrate (ISOSORBIDE MONONITRATE) 20 Mg Tablet, 20 MG PO DAILY, TAB 07/10/17 Levothyroxine Sodium* (LEVOTHYROXINE SODIUM*) 75 Mcg Tablet, 75 MCG ORAL DAILY, TAB Take in the morning on an empty stomach, at least 30 minutes before food. 07/10/17 Discontinued Reported Medications Diltiazem Hcl* (CARDIZEM*) 60 Mg Tablet, 120 MG ORAL DAILY, TAB 09/14/16 Isosorbide Mononitrate (ISOSORBIDE MONONITRATE) 10 Mg Tablet, 30 MG PO DAILY, TAB 09/14/16 Guaifenesin/Codeine Phosphate (GUAIFENESIN-CODEINE LIQUID) 118 Ml Liquid, 5 ML ORAL Q8H PRN for For Cough, #118 ML 0 Refills 04/25/15 Topiramate* (TOPAMAX*) 25 Mg Tablet, 50 MG ORAL TWICE A DAY, #60 TAB 0 Refills 04/25/15 Valsartan (DIOVAN) 80 Mg Tab, 80 MG ORAL DAILY, TAB 04/25/15 Aspirin* (ASPIRIN EC*) 325 Mg Tablet.dr, 81 MG ORAL DAILY, TAB 03/14/15 Simvastatin (ZOCOR) 10 Mg Tablet, 10 MG ORAL BEDTIME, TAB 03/14/15 Hydroxychloroquine Sulfate* (PLAQUENIL*) 200 Mg Tablet, 200 MG ORAL DAILY, #30 TAB 03/14/15 Olmesartan Medoxomil (BENICAR) 20 Mg Tablet, 20 MG ORAL DAILY, TAB 03/14/15 Propranolol Hcl* (INDERAL LA*) 60 Mg Cap.sa.24h, 20 MG ORAL DAILY, #10 CAP 0 Refills 03/14/15 Metformin Hcl* (METFORMIN HCL*) 500 Mg Tablet, 500 MG ORAL TWICE A DAY, TAB 03/14/15 Thyroid* (ARMOUR THYROID*) 30 Mg Tablet, 30 MG ORAL DAILY, TAB 0 Refills 03/14/15 Pantoprazole* (PANTOPRAZOLE*) 40 Mg Tablet.dr, 40 MG ORAL DAILY, TAB 03/14/15 Ranitidine Hcl* (ZANTAC*) 150 Mg Tablet, 150 MG ORAL TWICE A DAY, TAB 03/14/15 Discontinued Scripts Methocarbamol* (ROBAXIN-750*) 750 Mg Tablet, 750 MG PO QID, #28 TAB 0 Refills Prov:Monica Pineda M.D. 02/07/17 Acetaminophen* (TYLENOL EXTRA STRENGTH*) 500 Mg Tablet, 500 MG ORAL Q8H PRN for Prn Headache/Temp > 101, #30 TAB 0 Refills Prov:Pako Pinedase Lin 02/07/17 Ibuprofen* (MOTRIN*) 600 Mg Tablet, 600 MG ORAL Q8H PRN for For Pain, #30 TAB 0 Refills Prov:TERZIANELSIEY P.A. 11/06/16 Nitrofurantoin Monohyd/M-Cryst* (MACROBID 100 MG*) 100 Mg Capsule, 100 MG ORAL EVERY 12 HOURS, #14 CAP Prov:TERZIANSERGEY P.A. 11/06/16 Promethazine Hcl (PROMETHAZINE HCL*) 6.25 Mg/5 Ml Syrup, 5 ML ORAL Q6H, #120 ML 0 Refills Prov:Jose M Keane MD 09/14/16 Amoxicillin* (AMOXIL*) 500 Mg Capsule, 500 MG ORAL THREE TIMES A DAY, #21 CAP Prov:Jose M Keane MD 09/14/16 Cephalexin* (KEFLEX*) 500 Mg Capsule, 500 MG ORAL EVERY 6 HOURS, #28 CAP Prov:TERZIANSERGEY P.A. 05/24/16 Guaifenesin/Dextromethorphan (Guaifenesin Dm Syrup) 118 Ml Syrup, 10 ML ORAL Q6HR for For Cough for 14 Days, AD 0 Refills Prov:Nadine Lopez P.AJeni 04/25/15 Meclizine Hcl* (MECLIZINE*) 25 Mg Tablet, 25 MG ORAL THREE TIMES A DAY, #20 TAB Prov:KRYSTLE MAO M.D. 03/14/15 Hydrocodone Bit/Acetaminophen 5-325* (NORCO 5-325*) 1 Each Tablet, 1 TAB ORAL Q6H PRN for For Pain, #20 TAB Prov:KRYSTLE MAO M.D. 03/14/15 Med list reviewed/reconciled: Yes Allergies: Coded Allergies: NO KNOWN ALLERGIES (Unverified Allergy, Unknown, 03/14/15) Patient History History Provided By: Patient, Medical Record PMH Narrative Past Medical History: see triage record Past Surgical History: none Pertinent Family History: none Reviewed Nursing Documentation: PMH: Agreed; PSxH: Agreed Nursing Documentation-PMH Hx Hypertension: Yes Hx Pacemaker: No Hx Diabetes: Yes Hx Gastrointestinal Problems: Yes Hx Dialysis: No LUPUS Past Surgical History: cholecystectomy Social History: Denies: smoking, alcohol use, drug use, other Review of Systems All Other Systems: negative except mentioned in HPI Physical Exam Vital Signs Date Time Temp Pulse Resp B/P (MAP) Pulse Ox O2 Delivery O2 Flow Rate FiO2 07/10/17 16:28 98.2 81 20 149/89 95 Room Air 98.2 Sp02 EP Interpretation: reviewed, normal Labs Laboratory Tests Test 07/10/17 16:47 07/11/17 06:30 White Blood Count 13.7 K/UL (4.8-10.8) H 9.4 K/UL (4.8-10.8) Red Blood Count 4.65 M/UL (4.20-5.40) 4.22 M/UL (4.20-5.40) Hemoglobin 13.7 G/DL (12.0-16.0) 12.7 G/DL (12.0-16.0) Hematocrit 40.3 % (37.0-47.0) 36.7 % (37.0-47.0) L Mean Corpuscular Volume 87 FL (80-99) 87 FL (80-99) Mean Corpuscular Hemoglobin 29.4 PG (27.0-31.0) 30.1 PG (27.0-31.0) Mean Corpuscular Hemoglobin Concent 34.0 G/DL (32.0-36.0) 34.5 G/DL (32.0-36.0) Red Cell Distribution Width 11.6 % (11.6-14.8) 11.6 % (11.6-14.8) Platelet Count 258 K/UL (150-450) 210 K/UL (150-450) Mean Platelet Volume 7.6 FL (6.5-10.1) 7.1 FL (6.5-10.1) Neutrophils (%) (Auto) 84.0 % (45.0-75.0) H 73.8 % (45.0-75.0) Lymphocytes (%) (Auto) 9.8 % (20.0-45.0) L 18.8 % (20.0-45.0) L Monocytes (%) (Auto) 5.6 % (1.0-10.0) 6.7 % (1.0-10.0) Eosinophils (%) (Auto) 0.1 % (0.0-3.0) 0.3 % (0.0-3.0) Basophils (%) (Auto) 0.5 % (0.0-2.0) 0.3 % (0.0-2.0) Urine Color Pale yellow Urine Appearance Clear Urine pH 8 (4.5-8.0) Urine Specific [place] 1.010 (1.005-1.035) Urine Protein 1+ (NEGATIVE) H Urine Glucose (UA) Negative (NEGATIVE) Urine Ketones 3+ (NEGATIVE) H Urine Occult Blood 2+ (NEGATIVE) H Urine Nitrite Negative (NEGATIVE) Urine Bilirubin Negative (NEGATIVE) Urine Urobilinogen Normal MG/DL (0.0-1.0) Urine Leukocyte Esterase 2+ (NEGATIVE) H Urine RBC 5-10 /HPF (0 - 2) H Urine WBC 2-4 /HPF (0 - 2) Urine Squamous Epithelial Cells Moderate /LPF (NONE/OCC) H Urine Bacteria Few /HPF (NONE) Sodium Level 136 MMOL/L (136-145) Pending Potassium Level 3.8 MMOL/L (3.5-5.1) Pending Chloride Level 101 MMOL/L (98-107) Pending Carbon Dioxide Level 27 MMOL/L (21-32) Pending Anion Gap 9 mmol/L (5-15) Blood Urea Nitrogen 10 mg/dL (7-18) Pending Creatinine 0.7 MG/DL (0.55-1.30) Pending Estimat Glomerular Filtration Rate > 60 mL/min (>60) Pending Glucose Level 126 MG/DL (74-106) H Pending Calcium Level 8.5 MG/DL (8.5-10.1) Pending Total Bilirubin 0.9 MG/DL (0.2-1.0) Pending Aspartate Amino Transf (AST/SGOT) 22 U/L (15-37) Pending Alanine Aminotransferase (ALT/SGPT) 24 U/L (12-78) Pending Alkaline Phosphatase 78 U/L (46-116) Pending Troponin I 0.002 ng/mL (0.000-0.056) Pending Total Protein 8.1 G/DL (6.4-8.2) Pending Albumin 3.9 G/DL (3.4-5.0) Pending Globulin 4.2 g/dL Pending Albumin/Globulin Ratio 0.9 (1.0-2.7) L Lipase 72439 U/L (73-393) H Pending Prothrombin Time 10.1 SEC (9.30-11.50) Prothromb Time International Ratio 1.0 (0.9-1.1) Magnesium Level Pending Triglycerides Level Pending Cholesterol Level Pending LDL Cholesterol Pending HDL Cholesterol Pending Cholesterol/HDL Ratio Pending Thyroid Stimulating Hormone (TSH) Pending General Appearance: well appearing, no apparent distress, alert, obese Head: normocephalic EENT: PERRL/EOMI, normal ENT inspection Neck: supple Respiratory: normal breath sounds, no respiratory distress Cardiovascular: normal rate Gastrointestinal: normal inspection, non tender, soft, normal bowel sounds, non -distended Rectal: deferred Genitourinary: no CVA tenderness Musculoskeletal: normal inspection, back normal Neurologic: normal inspection, alert, oriented x3, responsive Psychiatric: normal inspection, judgement/insight normal, memory normal Skin: normal inspection, normal color, no rash, warm/dry, palpation normal, well hydrated Lymphatic: normal inspection, no adenopathy Current Medications Current Medications Medications (Trade) Dose Ordered Sig/Teagan Route PRN Reason Start Time Stop Time Status Last Admin Dose Admin Acetaminophen (Tylenol) 650 mg Q4H PRN ORAL Mild Pain (Pain Scale 1-3) 07/10/17 22:15 08/09/17 22:14 Acetaminophen (Tylenol) 650 mg Q4H PRN ORAL fever 07/10/17 22:15 08/09/17 22:14 Aspirin (Ecotrin) 81 mg DAILY ORAL 07/11/17 09:00 08/10/17 08:59 07/11/17 08:36 Dextrose (Dextrose 50%) 25 ml STAT PRN IV Hypoglycemia 07/10/17 22:15 08/09/17 22:14 Dextrose (Dextrose 50%) 50 ml STAT PRN IV Hypoglycemia 07/10/17 22:15 08/09/17 22:14 Dextrose/ Electrolytes 1,000 ml @ 100 mls/hr Q10H IV 07/10/17 23:14 08/09/17 23:13 07/11/17 08:50 Diltiazem HCl (Cardizem CD) 120 mg DAILY ORAL 07/11/17 09:00 08/10/17 08:59 Docusate Sodium (Colace) 100 mg EVERY 12 HOURS ORAL 07/11/17 09:00 08/10/17 08:59 07/11/17 08:36 Heparin Sodium (Porcine) (Heparin 5000 units/ml) 5,000 units EVERY 12 HOURS SUBQ 07/11/17 09:00 08/10/17 08:59 07/11/17 08:37 Levothyroxine Sodium (Synthroid) 75 mcg ACBREAKFAST ORAL 07/11/17 06:30 08/10/17 06:29 07/11/17 06:50 Magnesium Hydroxide (Mom) 30 ml HSPRN PRN ORAL Constipation 07/10/17 22:15 08/09/17 22:14 Morphine Sulfate (Morphine Sulfate) 2 mg Q3H PRN IVP MODERATE PAIN SCALE 4-6 07/10/17 22:30 07/17/17 22:29 Morphine Sulfate (Morphine Sulfate) 4 mg Q3HR PRN IVP Severe Pain (Pain Scale 7-10) 07/10/17 22:15 07/17/17 22:14 Nitroglycerin (Ntg) 0.4 mg Q5M PRN SL Prn Chest Pain 07/10/17 22:15 08/09/17 22:14 Ondansetron HCl (Zofran) 4 mg Q6H PRN IVP Nausea & Vomiting 07/10/17 22:15 08/09/17 22:14 Pantoprazole (Protonix) 40 mg DAILY IV 07/11/17 09:00 08/10/17 08:59 07/11/17 08:36 Piperacillin Sod/ Tazobactam Sod 3.375 gm/Sodium Chloride 100 ml @ 200 mls/hr 0700,1500,2300 IVPB 07/10/17 23:00 07/17/17 22:59 07/11/17 06:50 Propranolol HCl (Inderal) 40 mg DAILY ORAL 07/11/17 09:00 08/10/17 08:59 GI: Plan Problems: (1) Pancreatitis Plan elevated lipase levels >> downtrending lipid panel reviewed >> WNL will consider endoscopy pending CT workup clear liquid diet today, advance tomorrow fluid replacement >> cont IVFs + electrolyte correction ppi pain mgmt trend lipase fu labs, CA19-9, CEA Discussed with Dr. Collins. Thank you for this patient referral, we will follow. [id number] 07/15/17 1256: History of Present Illness General Reason for Hospitalization: Chest Pain Present Illness Home Meds Reported Medications Pravastatin Sod* (PRAVASTATIN SOD*) 20 Mg Tablet, 40 MG ORAL BEDTIME, TAB 07/10/17 Aspirin Ec* (ASPIRIN EC*) 81 Mg Tablet.dr, 81 MG ORAL DAILY, TAB 07/10/17 Diltiazem Hcl (DILTIAZEM 24HR CD) 120 Mg Cap.er.24h, 120 MG ORAL DAILY, #30 CAP 0 Refills 07/10/17 Ergocalciferol (Vitamin D2)* (VITAMIN D*) 50,000 Unit Capsule, 21634 UNIT ORAL ONCE A WEEK, CAP 07/10/17 Folic Acid* (FOLIC ACID*) 1 Mg Tablet, 1 MG ORAL DAILY, TAB 07/10/17 Hydroxychloroquine Sulfate* (PLAQUENIL*) 200 Mg Tablet, 200 MG ORAL TWICE A DAY , TAB 07/10/17 Propranolol Hcl* (INDERAL*) 40 Mg Tablet, 40 MG ORAL DAILY, #90 TAB 0 Refills 07/10/17 Isosorbide Mononitrate (ISOSORBIDE MONONITRATE) 20 Mg Tablet, 20 MG PO DAILY, TAB 07/10/17 Levothyroxine Sodium* (LEVOTHYROXINE SODIUM*) 75 Mcg Tablet, 75 MCG ORAL DAILY, TAB Take in the morning on an empty stomach, at least 30 minutes before food. 07/10/17 Discontinued Reported Medications Diltiazem Hcl* (CARDIZEM*) 60 Mg Tablet, 120 MG ORAL DAILY, TAB 09/14/16 Isosorbide Mononitrate (ISOSORBIDE MONONITRATE) 10 Mg Tablet, 30 MG PO DAILY, TAB 09/14/16 Guaifenesin/Codeine Phosphate (GUAIFENESIN-CODEINE LIQUID) 118 Ml Liquid, 5 ML ORAL Q8H PRN for For Cough, #118 ML 0 Refills 04/25/15 Topiramate* (TOPAMAX*) 25 Mg Tablet, 50 MG ORAL TWICE A DAY, #60 TAB 0 Refills 04/25/15 Valsartan (DIOVAN) 80 Mg Tab, 80 MG ORAL DAILY, TAB 04/25/15 Aspirin* (ASPIRIN EC*) 325 Mg Tablet.dr, 81 MG ORAL DAILY, TAB 03/14/15 Simvastatin (ZOCOR) 10 Mg Tablet, 10 MG ORAL BEDTIME, TAB 03/14/15 Hydroxychloroquine Sulfate* (PLAQUENIL*) 200 Mg Tablet, 200 MG ORAL DAILY, #30 TAB 03/14/15 Olmesartan Medoxomil (BENICAR) 20 Mg Tablet, 20 MG ORAL DAILY, TAB 03/14/15 Propranolol Hcl* (INDERAL LA*) 60 Mg Cap.sa.24h, 20 MG ORAL DAILY, #10 CAP 0 Refills 03/14/15 Metformin Hcl* (METFORMIN HCL*) 500 Mg Tablet, 500 MG ORAL TWICE A DAY, TAB 03/14/15 Thyroid* (ARMOUR THYROID*) 30 Mg Tablet, 30 MG ORAL DAILY, TAB 0 Refills 03/14/15 Pantoprazole* (PANTOPRAZOLE*) 40 Mg Tablet.dr, 40 MG ORAL DAILY, TAB 03/14/15 Ranitidine Hcl* (ZANTAC*) 150 Mg Tablet, 150 MG ORAL TWICE A DAY, TAB 03/14/15 Discontinued Scripts Methocarbamol* (ROBAXIN-750*) 750 Mg Tablet, 750 MG PO QID, #28 TAB 0 Refills Prov:RetinoMonica.DJeni 02/07/17 Acetaminophen* (TYLENOL EXTRA STRENGTH*) 500 Mg Tablet, 500 MG ORAL Q8H PRN for Prn Headache/Temp > 101, #30 TAB 0 Refills Prov:RetinoMonicaDJeni 02/07/17 Ibuprofen* (MOTRIN*) 600 Mg Tablet, 600 MG ORAL Q8H PRN for For Pain, #30 TAB 0 Refills Prov:TERZIAN,SERGEY P.A. 11/06/16 Nitrofurantoin Monohyd/M-Cryst* (MACROBID 100 MG*) 100 Mg Capsule, 100 MG ORAL EVERY 12 HOURS, #14 CAP Prov:TERZIAN,SERGEY P.A. 11/06/16 Promethazine Hcl (PROMETHAZINE HCL*) 6.25 Mg/5 Ml Syrup, 5 ML ORAL Q6H, #120 ML 0 Refills Prov:Jose M Keane MD 09/14/16 Amoxicillin* (AMOXIL*) 500 Mg Capsule, 500 MG ORAL THREE TIMES A DAY, #21 CAP Prov:Jose M Keane MD 09/14/16 Cephalexin* (KEFLEX*) 500 Mg Capsule, 500 MG ORAL EVERY 6 HOURS, #28 CAP Prov:TERSERGEY CULVER P.A. 05/24/16 Guaifenesin/Dextromethorphan (Guaifenesin Dm Syrup) 118 Ml Syrup, 10 ML ORAL Q6HR for For Cough for 14 Days, AD 0 Refills Prov:Nadine Lopez P.A. 04/25/15 Meclizine Hcl* (MECLIZINE*) 25 Mg Tablet, 25 MG ORAL THREE TIMES A DAY, #20 TAB Prov:KRYSTLE MAO M.D. 03/14/15 Hydrocodone Bit/Acetaminophen 5-325* (NORCO 5-325*) 1 Each Tablet, 1 TAB ORAL Q6H PRN for For Pain, #20 TAB Prov:KRYSTLE MAO M.D. 03/14/15 Allergies: Coded Allergies: NO KNOWN ALLERGIES (Unverified Allergy, Unknown, 03/14/15) GI: Plan Plan The patient was seen and examined at bedside and all new and available data was reviewed in the patients chart. I agree with the above findings, impression and plan. (Patient seen earlier today. Signature stamp does not reflect patient encounter time.). - MD [facility] Jose Angel NVincenzo Jul 11, 2017 10:21 LATANYA COLLINS Jul 15, 2017 12:56
--- NOTE | 2017-07-11 10:42 | Diagnostic Imaging Report ---
Indication: Pain Technique: One view of the chest Comparison: none Findings: Lungs and pleural spaces are clear. Heart size is normal. Aorta is tortuous and calcified Impression: No acute process
[2017-07-11 11:11] LABS: ALANINE AMINOTRANSFERASE 26 U/L (12-78); ALBUMIN 3.3 G/DL (3.4-5.0); ALKALINE PHOSPHATASE 66 U/L (46-116); ANION GAP 8 mmol/L (5-15); ASPARTATE AMINO TRANSFERASE 23 U/L (15-37); BILIRUBIN,TOTAL 0.8 MG/DL (0.2-1.0); BLOOD UREA NITROGEN 7 mg/dL (7-18); CALCIUM 7.8 MG/DL (8.5-10.1); CARBON DIOXIDE 27 MMOL/L (21-32); CHLORIDE 105 MMOL/L (98-107); CHOLESTEROL 144 MG/DL (< 200); CREATININE 0.6 MG/DL (0.55-1.30); HDL CHOLESTEROL 55 MG/DL (40-60); POTASSIUM 3.6 MMOL/L (3.5-5.1); SODIUM 140 MMOL/L (136-145); TRIGLYCERIDES 73 MG/DL (30-150)
[2017-07-11 12:00] VITALS: BP 117/58
--- NOTE | 2017-07-11 13:30 | Progress Note ---
DATE: 07/11/2017 CARDIOLOGY PROGRESS NOTE SUBJECTIVE: The patient has no nausea or vomiting. Less abdominal discomfort. No recurring chest pain. OBJECTIVE: VITAL SIGNS: Monitored rhythm sinus. Blood pressure 122/58, heart rate 68, respiratory rate 18. She is afebrile. NECK: Supple. LUNGS: Clear. CARDIAC: Regular rhythm and rate. Normal S1, S2 with no murmur. No chest wall tenderness. ABDOMEN: Mild midepigastric discomfort. No hepatomegaly. No edema. LABORATORY DATA: Potassium 3.6, BUN 7, and creatinine 0.6. Troponin negative x2. Albumin 3.3. Cholesterol 144, triglycerides 73. Lipase 4200 down from over 10,000. TSH 0.352. IMPRESSION: 1. No signs of acute coronary insufficiency. Chest pain was likely noncardiac. 2. Acute pancreatitis, clinically improving. 3. Mild protein-calorie malnutrition. 4. Favorable lipid panel. PLAN: Recommend continue GI workup. NPO. No additional cardiovascular workup presently indicated. Discontinue telemetry. Nikita Reddy M.D. DR: CHRISTOPHER JOB#: [id number] CC:
[2017-07-11 16:00] VITALS: BP 115/58
--- NOTE | 2017-07-11 16:30 | History and Physical Report ---
DATE OF ADMISSION: 07/10/2017 CHIEF COMPLAINT AND REASON FOR HOSPITALIZATION: The patient admitted with epigastric right upper quadrant pain, possible chest pain, markedly elevated lipase. HISTORY OF PRESENT ILLNESS: The patient is a 72-year-old lady born in [facility] presents with mostly epigastric right upper quadrant pain, some possible chest pain and is admitted for the following problem with elevated lipase. History is significant for cholecystectomy in 1994. About 3 years ago, she had a procedure for a biliary stone. Since that time, she has been doing well presented with acute pain in this admission. Troponin has been negative. History is significant for adult onset diabetes, hypertension, and a history of lupus. ALLERGIES: None known. HABITS: She is a nondrinker and nonsmoker. No use of illicit drugs. PAST SURGICAL HISTORY: Cholecystectomy, bladder suspension, cataract and intraocular lens in both eyes. HOME MEDICATIONS: Include aspirin 81 mg daily, diltiazem 120 daily, vitamin D 250 1000 units once a week, folic acid 1 mg daily, hydroxychloroquine 200 mg b.i.d., isosorbide 20 mg daily, levothyroxine 75 mcg daily, pravastatin 40 mg daily, and propranolol 40 mg daily. FAMILY HISTORY: Positive for diabetes in her father. SYSTEM REVIEW: HEAD EYES, EARS, NOSE, THROAT: She has occasional blurred vision. She has had some vague problem with the left ear and some lightheadedness, possibly vertigo. PULMONARY: No asthma, TB, chronic cough. CARDIAC: History of hypertension and hyperlipidemia. She had a negative stress test three months ago. GASTROINTESTINAL: See history of present illness. She has had some gastroesophageal reflux. No hematochezia or melena. No constipation or diarrhea recently. GENITOURINARY: She had bladder suspension. No recent dysuria or hematuria. NEUROLOGIC: No CVA or seizures. MUSCULOSKELETAL: History of diagnosis of lupus and she is on Plaquenil. She said lupus made her feel weak but she could not really describe the symptoms attributed to lupus. She also has a cervical disk problem. PHYSICAL EXAMINATION: GENERAL: The patient is alert lady, in no acute distress. VITAL SIGNS: BMI 26.3. Temperature 97.7, pulse 67, respirations 18, and blood pressure 117/58. HEAD EYES, EARS, NOSE, AND THROAT: Sclerae are nonicteric. Ocular motions intact in all directions. Oral mucosa moist. NECK: No adenopathy. LUNGS: Clear. BREASTS: No masses. ABDOMEN: Soft. Liver and spleen not palpable. There is very minimal epigastric pain. No rebound. EXTREMITIES: No edema, cyanosis or clubbing. No swollen joints. NEUROLOGIC: She is alert and oriented. Cranial nerves are intact. PERTINENT LABORATORY DATA: Show white count of 13.7, repeat 9.4, hemoglobin 12.7. Lipase 97470, repeat 4241. TSH 0.342. Troponin 0.002 and 0.00. IMPRESSION: 1. Acute pancreatitis, etiology unclear but could be due to retained biliary stones. 2. Per history, she also had a drug-induced pancreatitis from statins or questionably from hydrochloroquine. 3. Lupus. 4. Hypertension. 5. Chest pain atypical. Her pain appears to be epigastric in nature. She does have risk factors. 6. Adult-onset diabetes. 7. History of GERD. PLAN: The patient was kept NPO. Imaging has been ordered. CT abdomen. The patient may need ERCP and Dr. aMtos has been called for GI consultation. She is also getting cardiac consultation to clear her and assess that there is no occult coronary disease. Zhou Diego M.D. : [place] JOB#: [id number] CC:
[2017-07-11] MEDS ORDERED: Milk of Magnesia 30ml Ud ORAL PRN (17:28)
[2017-07-11] MEDS ORDERED: Morphine Sulfate 4mg/ml Inj IVP PRN (17:29)
[2017-07-11] MEDS ORDERED: Nitroglycerin Subl 0.4mg tab SL PRN (17:29)
[2017-07-11 20:00] VITALS: BP 127/69
[2017-07-11] MEDS: Docusate 100mg cap ORAL SCH (20:28)
[2017-07-11] MEDS: Heparin 5000 units/ml inj SUBQ SCH (20:32)
[2017-07-12] VITALS (7 sets, daily range): BP systolic 121–165; BP diastolic 56–79
[2017-07-12 07:33] LABS: BASOPHILS % (AUTO) 0.9 % (0.0-2.0); EOSINOPHILS % (AUTO) 1.3 % (0.0-3.0); HEMATOCRIT 38.7 % (37.0-47.0); HEMOGLOBIN 13.5 G/DL (12.0-16.0); MEAN CORPUSCULAR VOLUME 87 FL (80-99); MONOCYTES % (AUTO) 7.9 % (1.0-10.0); NEUTROPHILS % (AUTO) 51.9 % (45.0-75.0); PLATELET COUNT 228 K/UL (150-450); RED BLOOD COUNT 4.46 M/UL (4.20-5.40); RED CELL DISTRIBUTION WIDTH 11.7 % (11.6-14.8); WHITE BLOOD COUNT 5.2 K/UL (4.8-10.8)
[2017-07-12 07:52] LABS: ALANINE AMINOTRANSFERASE 22 U/L (12-78); ALBUMIN 3.2 G/DL (3.4-5.0); ALBUMIN/GLOBULIN RATIO 0.8 (1.0-2.7); ALKALINE PHOSPHATASE 63 U/L (46-116); AMYLASE 161 U/L (25-115); ANION GAP 6 mmol/L (5-15); ASPARTATE AMINO TRANSFERASE 20 U/L (15-37); BILIRUBIN,TOTAL 0.6 MG/DL (0.2-1.0); BLOOD UREA NITROGEN 5 mg/dL (7-18); CALCIUM 8.2 MG/DL (8.5-10.1); CARBON DIOXIDE 26 MMOL/L (21-32); CHLORIDE 107 MMOL/L (98-107); CREATININE 0.8 MG/DL (0.55-1.30); POTASSIUM 3.9 MMOL/L (3.5-5.1); SODIUM 139 MMOL/L (136-145)
[2017-07-12] MEDS: dilTIAZem HCl CD 120mg cap ORAL SCH ×2 (09:58→10:16)
[2017-07-12] MEDS: Docusate 100mg cap ORAL SCH ×2 (09:59→20:30)
[2017-07-12] MEDS: Aspirin EC 81mg tab ORAL SCH ×2 (10:01→10:17)
[2017-07-12] MEDS: Propranolol 40mg tab ORAL SCH (10:02)
[2017-07-12] MEDS: Heparin 5000 units/ml inj SUBQ SCH ×2 (10:24→20:32)
[2017-07-12] MEDS: D5 1/2NS w/KCl 20mEq 1,000 ML IV SCH ×2 (10:30→22:24)
[2017-07-12] MEDS: Pantoprazole Inj IV SCH (10:30)
--- NOTE | 2017-07-12 11:19 | General Progress Note ---
Assessment/Plan Problem List: (1) Lupus ICD Codes: L93.0 - Discoid lupus erythematosus SNOMED: 991047916 (2) Pancreatitis ICD Codes: K85.90 - Acute pancreatitis without necrosis or infection, unspecified SNOMED: 35537866 (3) Chest pain ICD Codes: R07.9 - Chest pain, unspecified SNOMED: 09533252 (4) GERD (gastroesophageal reflux disease) ICD Codes: K21.9 - Gastro-esophageal reflux disease without esophagitis SNOMED: 410360155 Assessment/Plan no ischemia, ct pending, lipase better, start diet, possible ercp Subjective Constitutional: Reports: no symptoms HEENT: Reports: no symptoms Cardiovascular: Reports: no symptoms Respiratory: Reports: no symptoms Gastrointestinal/Abdominal: Reports: nausea, other - heartburn Genitourinary: Reports: no symptoms Neurologic/Psychiatric: Reports: no symptoms Endocrine: Reports: no symptoms Hematologic/Lymphatic: Reports: no symptoms Allergies: Coded Allergies: NO KNOWN ALLERGIES (Unverified Allergy, Unknown, 03/14/15) Objective Last 24 Hour Vital Signs Date Time Temp Pulse Resp B/P (MAP) Pulse Ox O2 Delivery O2 Flow Rate FiO2 07/12/17 10:16 69 142/75 07/12/17 10:02 69 142/75 07/12/17 08:21 97.7 67 16 138/72 97.7 07/12/17 04:00 98.5 67 19 121/73 98 98.5 07/12/17 00:00 98.4 64 18 138/56 97 98.4 07/11/17 20:00 98.6 68 19 127/69 97 98.6 07/11/17 16:00 97.0 65 18 115/58 96 Room Air 97.0 07/11/17 12:00 67 07/11/17 12:00 97.7 18 117/58 96 Room Air 97.7 Intake and Output 07/11/17 07/12/17 19:00 07:00 Intake Total 100 ml 1100 ml Balance 100 ml 1100 ml Intake IV Total 100 ml 1100 ml # Voids 3 4 # Bowel Movements 2 2 Laboratory Tests 07/12/17 05:35: White Blood Count 5.2, Red Blood Count 4.46, Hemoglobin 13.5, Hematocrit 38.7, Mean Corpuscular Volume 87, Mean Corpuscular Hemoglobin 30.3, Mean Corpuscular Hemoglobin Concent 34.9, Red Cell Distribution Width 11.7, Platelet Count 228, Mean Platelet Volume 7.8, Neutrophils (%) (Auto) 51.9, Lymphocytes (%) (Auto) 38.0, Monocytes (%) (Auto) 7.9, Eosinophils (%) (Auto) 1.3, Basophils (%) (Auto ) 0.9, Sodium Level 139, Potassium Level 3.9, Chloride Level 107, Carbon Dioxide Level 26, Anion Gap 6, Blood Urea Nitrogen 5L, Creatinine 0.8, Estimat Glomerular Filtration Rate > 60, Glucose Level 114H, Calcium Level 8.2L, Total Bilirubin 0.6, Aspartate Amino Transf (AST/SGOT) 20, Alanine Aminotransferase ( ALT/SGPT) 22, Alkaline Phosphatase 63, Total Protein 7.3, Albumin 3.2L, Globulin 4.1, Albumin/Globulin Ratio 0.8L, Amylase Level 161H, Lipase 659H Height (Feet): 4 Height (Inches): 11.00 Weight (Pounds): 130 General Appearance: WD/WN, no apparent distress EENT: PERRL/EOMI Neck: normal alignment Cardiovascular: normal rate, regular rhythm Respiratory/Chest: lungs clear Abdomen: non tender, soft Edema: no edema noted Arm (L), no edema noted Arm (R), no edema noted Leg (L), no edema noted Leg (R), no edema noted Pedal (L), no edema noted Pedal (R), no edema noted Generalized Neurologic: vp ancillary II-XII grossly normal, no motor/sensory deficits TEDDY SINGLETON Jul 12, 2017 11:19
--- NOTE | 2017-07-12 13:20 | Diagnostic Imaging Report ---
Clinical Indication: Chest pain Technique: IV administration nonionic contrast. Spiral acquisition obtained through the chest. Multiplanar reconstructions generated. Total dose length product 1802 mGycm. CTDIvol(s) 8, 73, 22, 17 mGy. Dose reduction achieved using automated exposure control Comparison: none Findings: Lungs are clear. No infiltrates, effusions, or congestion. No nodules or masses The heart is upper limits of normal in size. No pericardial effusion. No mediastinal or hilar mass or adenopathy. No axillary or chest wall mass or adenopathy. The included portions of the thyroid appear unremarkable. The bones are unremarkable except for degenerative spondylosis changes. The included upper abdominal anatomy is described on report of abdominal pelvis CT performed the same time Impression: Essentially unremarkable exam. No acute process. Incidental finding of degenerative spondylosis The CT scanner at [facility] is accredited by the [employer] and the scans are performed using protocols designed to limit radiation exposure to as low as reasonably achievable to attain images of sufficient resolution adequate for diagnostic evaluation.
--- NOTE | 2017-07-12 13:31 | Diagnostic Imaging Report ---
Clinical Indication: Abdominal pain Technique: No oral contrast utilized, per emergency room physician request IV administration nonionic contrast. Multiphasic spiral acquisitions obtained through the abdomen and pelvis. Multiplanar reconstructions were generated. Total dose length product 1802.36 mGycm. CTDIvol(s) 22.06,17.73 mGy. Dose reduction achieved using automated exposure control Comparison: 11/06/2016 Findings: Again demonstrated is a small fat-containing left inguinal hernia. No evidence of diverticulosis or diverticulitis. The appendix is normal. No small bowel distention. No free or loculated intraperitoneal air or fluid is evident. Distal esophagus, stomach, duodenum are unremarkable. The gallbladder is surgically absent. There is mild ectasia of the extrahepatic bile ducts. There is a subcentimeter low-attenuation lesion within segment 2 of the liver which is too small to characterize. The liver is otherwise unremarkable. A calcification is seen immediately inferior to the left hepatic lobe. The pancreas, spleen, adrenals, kidneys are unremarkable. No retroperitoneal or mesenteric mass or adenopathy. A cyst is seen in the left side of the posterior pelvis, measuring 4 x 2.8 cm. This is unchanged from the previous exam. The uterus and ovaries are unremarkable. The bones are unremarkable except for degenerative spondylosis changes Impression: No acute abnormality 4 x 2.8 cm left pelvic cyst, adjacent to the ovary and therefore likely a paraovarian cyst, unchanged from 11/06/2016 Surgically absent gallbladder. Mild ectasia of the extrahepatic bile ducts, likely related to age and postcholecystectomy state. Correlation with liver function tests is recommended Subcentimeter low-attenuation liver lesion, too small to characterize. Most likely benign simple cyst or bile hamartoma, unchanged from earlier. No further follow-up necessary Other findings as noted, including degenerative spondylosis, perihepatic calcification The CT scanner at [facility] is accredited by the [employer] and the scans are performed using protocols designed to limit radiation exposure to as low as reasonably achievable to attain images of sufficient resolution adequate for diagnostic evaluation.
--- NOTE | 2017-07-12 14:33 | GI Progress Note ---
Assessment/Plan Assessment/Plan CT AP reviewed >> No acute abnormality 4 x 2.8 cm left pelvic cyst, adjacent to the ovary and therefore likely a paraovarian cyst, unchanged from 11/06/2016 Surgically absent gallbladder. Mild ectasia of the extrahepatic bile ducts, likely related to age and postcholecystectomy state. elevated lipase levels >> downtrending lipid panel reviewed >> downtrending possible ERCP this obtain records from [facility] regarding ?stent placement cont clear liquid diet fluid replacement >> cont IVFs + electrolyte correction ppi pain mgmt trend lipase fu labs, CA19-9, CEA Objective Last 24 Hour Vital Signs Date Time Temp Pulse Resp B/P (MAP) Pulse Ox O2 Delivery O2 Flow Rate FiO2 07/12/17 12:18 97.6 69 18 140/63 98 97.6 07/12/17 12:00 97.6 69 17 140/63 98 Room Air 97.6 07/12/17 10:16 69 142/75 07/12/17 10:02 69 142/75 07/12/17 08:21 97.7 67 16 138/72 97.7 07/12/17 04:00 98.5 67 19 121/73 98 98.5 07/12/17 00:00 98.4 64 18 138/56 97 98.4 07/11/17 20:00 98.6 68 19 127/69 97 98.6 07/11/17 16:00 97.0 65 18 115/58 96 Room Air 97.0 Intake and Output 07/11/17 07/12/17 19:00 07:00 Intake Total 100 ml 1100 ml Balance 100 ml 1100 ml IV Total 100 ml 1100 ml # Voids 3 4 # Bowel Movements 2 2 Laboratory Tests Test 07/12/17 05:35 White Blood Count 5.2 K/UL (4.8-10.8) Red Blood Count 4.46 M/UL (4.20-5.40) Hemoglobin 13.5 G/DL (12.0-16.0) Hematocrit 38.7 % (37.0-47.0) Mean Corpuscular Volume 87 FL (80-99) Mean Corpuscular Hemoglobin 30.3 PG (27.0-31.0) Mean Corpuscular Hemoglobin Concent 34.9 G/DL (32.0-36.0) Red Cell Distribution Width 11.7 % (11.6-14.8) Platelet Count 228 K/UL (150-450) Mean Platelet Volume 7.8 FL (6.5-10.1) Neutrophils (%) (Auto) 51.9 % (45.0-75.0) Lymphocytes (%) (Auto) 38.0 % (20.0-45.0) Monocytes (%) (Auto) 7.9 % (1.0-10.0) Eosinophils (%) (Auto) 1.3 % (0.0-3.0) Basophils (%) (Auto) 0.9 % (0.0-2.0) Sodium Level 139 MMOL/L (136-145) Potassium Level 3.9 MMOL/L (3.5-5.1) Chloride Level 107 MMOL/L (98-107) Carbon Dioxide Level 26 MMOL/L (21-32) Anion Gap 6 mmol/L (5-15) Blood Urea Nitrogen 5 mg/dL (7-18) L Creatinine 0.8 MG/DL (0.55-1.30) Estimat Glomerular Filtration Rate > 60 mL/min (>60) Glucose Level 114 MG/DL (74-106) H Calcium Level 8.2 MG/DL (8.5-10.1) L Total Bilirubin 0.6 MG/DL (0.2-1.0) Aspartate Amino Transf (AST/SGOT) 20 U/L (15-37) Alanine Aminotransferase (ALT/SGPT) 22 U/L (12-78) Alkaline Phosphatase 63 U/L (46-116) Total Protein 7.3 G/DL (6.4-8.2) Albumin 3.2 G/DL (3.4-5.0) L Globulin 4.1 g/dL Albumin/Globulin Ratio 0.8 (1.0-2.7) L Amylase Level 161 U/L (25-115) H Lipase 659 U/L (73-393) H Height (Feet): 4 Height (Inches): 11.00 Weight (Pounds): 130 Marizol Santacruz N.PJeni Jul 12, 2017 14:33
[2017-07-12] MEDS: Morphine Sulfate 4mg/ml Inj IVP PRN (22:19)
[2017-07-13] VITALS: BP 115/57
--- NOTE | 2017-07-13 02:00 | Progress Note ---
DATE: 07/12/2017 CARDIOLOGY PROGRESS NOTE SUBJECTIVE: The patient is without chest pain. No significant abdominal discomfort. OBJECTIVE: VITAL SIGNS: Blood pressure 142/75, pulse 69, respiratory rate 16. LUNGS: Clear. CARDIAC: Regular. Normal S1, S2. CHEST: Chest wall without tenderness. ABDOMEN: Slightly tender in the midepigastric region. EXTREMITIES: Without edema. LABORATORY DATA: Noted. IMPRESSION: 1. Noncardiac chest pain, now resolved. 2. Acute pancreatitis. 3. Gastroesophageal reflux disease. 4. Discoid lupus erythematosus. PLAN: 1. Await CAT scan. 2. Possible ERCP . 3. No additional cardiovascular workup presently planned. 4. We will follow closely and titrate antihypertensive regimen once oral intake is totally resumed. Nikita Reddy M.D. DRJc [place] JOB#: [id number] CC:
[2017-07-13 04:00] VITALS: BP 157/90
[2017-07-13] MEDS: Morphine Sulfate 4mg/ml Inj IVP PRN ×2 (04:59→19:58)
[2017-07-13 08:00] VITALS: BP 141/89
[2017-07-13 08:17] LABS: BASOPHILS % (AUTO) 0.6 % (0.0-2.0); EOSINOPHILS % (AUTO) 0.6 % (0.0-3.0); HEMATOCRIT 41.7 % (37.0-47.0); HEMOGLOBIN 14.5 G/DL (12.0-16.0); MEAN CORPUSCULAR VOLUME 88 FL (80-99); MONOCYTES % (AUTO) 8.3 % (1.0-10.0); NEUTROPHILS % (AUTO) 73.4 % (45.0-75.0); PLATELET COUNT 244 K/UL (150-450); RED BLOOD COUNT 4.75 M/UL (4.20-5.40); RED CELL DISTRIBUTION WIDTH 11.5 % (11.6-14.8); WHITE BLOOD COUNT 7.3 K/UL (4.8-10.8)
[2017-07-13 08:44] LABS: ALANINE AMINOTRANSFERASE 23 U/L (12-78); ALBUMIN 3.4 G/DL (3.4-5.0); ALBUMIN/GLOBULIN RATIO 0.7 (1.0-2.7); ALKALINE PHOSPHATASE 75 U/L (46-116); ANION GAP 9 mmol/L (5-15); ASPARTATE AMINO TRANSFERASE 22 U/L (15-37); BILIRUBIN,TOTAL 0.5 MG/DL (0.2-1.0); BLOOD UREA NITROGEN 4 mg/dL (7-18); CALCIUM 8.1 MG/DL (8.5-10.1); CARBON DIOXIDE 23 MMOL/L (21-32); CHLORIDE 102 MMOL/L (98-107); CREATININE 0.8 MG/DL (0.55-1.30); POTASSIUM 4.4 MMOL/L (3.5-5.1); SODIUM 134 MMOL/L (136-145)
[2017-07-13] MEDS: Docusate 100mg cap ORAL SCH ×2 (08:50→20:23)
[2017-07-13] MEDS: Heparin 5000 units/ml inj SUBQ SCH ×2 (08:51→20:24)
[2017-07-13] MEDS: Propranolol 40mg tab ORAL SCH (08:51)
[2017-07-13] MEDS: dilTIAZem HCl CD 120mg cap ORAL SCH (08:52)
[2017-07-13] MEDS: D5 1/2NS w/KCl 20mEq 1,000 ML IV SCH ×2 (08:53→19:48)
[2017-07-13] MEDS: Pantoprazole Inj IV SCH (08:53)
[2017-07-13 12:00] VITALS: BP 145/73
--- NOTE | 2017-07-13 14:04 | GI Progress Note ---
Assessment/Plan Problems: (1) Pancreatitis ICD Codes: K85.90 - Acute pancreatitis without necrosis or infection, unspecified SNOMED: 49620763 (2) GERD (gastroesophageal reflux disease) ICD Codes: K21.9 - Gastro-esophageal reflux disease without esophagitis SNOMED: 232527040 (3) Cystitis ICD Codes: N30.90 - Cystitis, unspecified without hematuria SNOMED: 20356055 Status: stable Status Narrative Discussed with Dr. Matos. Assessment/Plan CT AP reviewed >> reviewed with radiologist No acute abnormality 4 x 2.8 cm left pelvic cyst, adjacent to the ovary and therefore likely a paraovarian cyst, unchanged from 11/06/2016 Surgically absent gallbladder. Mild ectasia of the extrahepatic bile ducts, likely related to age and postcholecystectomy state. elevated lipase levels >> downtrending lipid panel reviewed >> WNL EUS vs ERCP deferred, okay for DC per GI standpoint >> will need follow up as outpatient. obtain records from [facility] regarding ?CBD stent placement adv diet ppi pain mgmt trend lipase fu labs, CA19-9, CEA Subjective Gastrointestinal/Abdominal: Reports: no symptoms Objective Last 24 Hour Vital Signs Date Time Temp Pulse Resp B/P (MAP) Pulse Ox O2 Delivery O2 Flow Rate FiO2 07/13/17 12:00 97.6 68 16 145/73 100 Room Air 97.6 07/13/17 08:52 73 141/89 07/13/17 08:51 73 141/89 07/13/17 08:00 97.1 73 14 141/89 99 97.1 07/13/17 04:00 98.9 78 19 157/90 99 98.9 07/13/17 00:00 98.1 65 19 115/57 100 98.1 07/12/17 20:00 98.8 69 20 165/79 97 98.8 07/12/17 15:45 98.4 65 18 144/68 97 98.4 Intake and Output 07/12/17 07/13/17 19:00 07:00 Intake Total 1860 ml 800 ml Balance 1860 ml 800 ml Intake Oral 960 ml IV Total 900 ml 800 ml # Voids 9 3 # Bowel Movements 2 2 Laboratory Tests Test 07/13/17 07:34 White Blood Count 7.3 K/UL (4.8-10.8) Red Blood Count 4.75 M/UL (4.20-5.40) Hemoglobin 14.5 G/DL (12.0-16.0) Hematocrit 41.7 % (37.0-47.0) Mean Corpuscular Volume 88 FL (80-99) Mean Corpuscular Hemoglobin 30.5 PG (27.0-31.0) Mean Corpuscular Hemoglobin Concent 34.7 G/DL (32.0-36.0) Red Cell Distribution Width 11.5 % (11.6-14.8) L Platelet Count 244 K/UL (150-450) Mean Platelet Volume 7.6 FL (6.5-10.1) Neutrophils (%) (Auto) 73.4 % (45.0-75.0) Lymphocytes (%) (Auto) 17.0 % (20.0-45.0) L Monocytes (%) (Auto) 8.3 % (1.0-10.0) Eosinophils (%) (Auto) 0.6 % (0.0-3.0) Basophils (%) (Auto) 0.6 % (0.0-2.0) Sodium Level 134 MMOL/L (136-145) L Potassium Level 4.4 MMOL/L (3.5-5.1) Chloride Level 102 MMOL/L (98-107) Carbon Dioxide Level 23 MMOL/L (21-32) Anion Gap 9 mmol/L (5-15) Blood Urea Nitrogen 4 mg/dL (7-18) L Creatinine 0.8 MG/DL (0.55-1.30) Estimat Glomerular Filtration Rate > 60 mL/min (>60) Glucose Level 151 MG/DL (74-106) H Calcium Level 8.1 MG/DL (8.5-10.1) L Total Bilirubin 0.5 MG/DL (0.2-1.0) Aspartate Amino Transf (AST/SGOT) 22 U/L (15-37) Alanine Aminotransferase (ALT/SGPT) 23 U/L (12-78) Alkaline Phosphatase 75 U/L (46-116) Total Protein 8.0 G/DL (6.4-8.2) Albumin 3.4 G/DL (3.4-5.0) Globulin 4.6 g/dL Albumin/Globulin Ratio 0.7 (1.0-2.7) L Lipase 413 U/L (73-393) H Height (Feet): 4 Height (Inches): 11.00 Weight (Pounds): 130 General Appearance: WD/WN, no apparent distress, alert Cardiovascular: normal rate Respiratory/Chest: normal breath sounds, no respiratory distress Abdominal Exam: normal bowel sounds, non tender, soft Extremities: normal range of motion, non-tender Marizol Santacruz N.P. Jul 13, 2017 14:03
[2017-07-13] MEDS: Piperacillin/Tazobactam 3.375 GM in D5W 110 ML IVPB SCH ×2 (15:55→22:34)
[2017-07-13 16:00] VITALS: BP 119/60
[2017-07-13 20:00] VITALS: BP 119/76
[2017-07-14 00:09] VITALS: BP 135/60
--- NOTE | 2017-07-14 02:30 | Progress Note ---
DATE: 07/13/2017 INTERIM HISTORY: The patient presented with abdominal pain, was improving. She had a very high lipase, also improving. She is not complaining of sciatica on the left side. PERTINENT PHYSICAL FINDINGS: VITAL SIGNS: Temperature is 98.7 degrees, pulse 69, respirations 20, and blood pressure 119/76. LUNGS: Clear. HEART: Regular rhythm. ABDOMEN: Soft. No focal tenderness. EXTREMITIES: No edema. She is complaining of sciatica pain. LABORATORY DATA: Pertinent labs showed normal electrolytes. Her lipase is now 413. IMPRESSION: 1. Sciatica. 2. Pancreatitis, acute. 3. History of prior cholecystectomy and prior procedure for disease multiple years after. 4. Hypertension. 5. Glucose intolerance. PLAN: We will observe the patient with the current regimen and discuss further with GI for the procedures are to be done and continue symptomatic care. Zhou Diego M.D. DR: IGLESIA JOB#: [id number] CC:
[2017-07-14 04:00] VITALS: BP 112/56
[2017-07-14] MEDS: D5 1/2NS w/KCl 20mEq 1,000 ML IV SCH (06:28)
[2017-07-14] MEDS: Piperacillin/Tazobactam 3.375 GM in D5W 110 ML IVPB SCH (06:28)
--- NOTE | 2017-07-14 06:30 | Progress Note ---
DATE: 07/13/2017 CARDIOLOGY PROGRESS NOTE SUBJECTIVE: Abdominal pain is improving. She has no chest pain. OBJECTIVE: VITAL SIGNS: Blood pressure 119/76, heart rate 69, respiratory rate 20. LUNGS: Clear. CARDIAC: Regular with normal S1, S2. No new murmur. ABDOMEN: Soft and nontender. EXTREMITIES: There is no edema. IMPRESSION: 1. Acute pancreatitis, improving. 2. Prior cholecystectomy. 3. Hypertensive heart disease. 4. Metabolic syndrome with glucose intolerance. 5. Sciatica. PLAN: 1. Continue GI workup. 2. No change in cardiovascular medications at this time. 3. We will follow with no anticipation for additional cardiac workup at present. Riley Hernandez JOB#: [id number] CC:
[2017-07-14 07:19] LABS: BASOPHILS % (AUTO) 1.1 % (0.0-2.0); EOSINOPHILS % (AUTO) 1.1 % (0.0-3.0); HEMATOCRIT 36.3 % (37.0-47.0); HEMOGLOBIN 12.5 G/DL (12.0-16.0); LYMPHOCYTES % (AUTO) 34.2 % (20.0-45.0); MEAN CORPUSCULAR VOLUME 87 FL (80-99); MONOCYTES % (AUTO) 14.5 % (1.0-10.0); NEUTROPHILS % (AUTO) 49.2 % (45.0-75.0); PLATELET COUNT 216 K/UL (150-450); RED BLOOD COUNT 4.16 M/UL (4.20-5.40); RED CELL DISTRIBUTION WIDTH 11.3 % (11.6-14.8); WHITE BLOOD COUNT 5.2 K/UL (4.8-10.8)
[2017-07-14 07:28] LABS: ALANINE AMINOTRANSFERASE 20 U/L (12-78); ALBUMIN 2.9 G/DL (3.4-5.0); ALBUMIN/GLOBULIN RATIO 0.7 (1.0-2.7); ALKALINE PHOSPHATASE 60 U/L (46-116); AMYLASE 86 U/L (25-115); ANION GAP 7 mmol/L (5-15); ASPARTATE AMINO TRANSFERASE 17 U/L (15-37); BILIRUBIN,TOTAL 0.6 MG/DL (0.2-1.0); BLOOD UREA NITROGEN 6 mg/dL (7-18); CARBON DIOXIDE 27 MMOL/L (21-32); CHLORIDE 107 MMOL/L (98-107); CREATININE 0.8 MG/DL (0.55-1.30); POTASSIUM 4.5 MMOL/L (3.5-5.1); SODIUM 141 MMOL/L (136-145)
[2017-07-14 08:00] VITALS: BP 119/58
[2017-07-14] MEDS: Pantoprazole Inj IV SCH (08:35)
[2017-07-14] MEDS: dilTIAZem HCl CD 120mg cap ORAL SCH (08:36)
[2017-07-14] MEDS: Aspirin EC 81mg tab ORAL SCH ×2 (08:36→08:40)
[2017-07-14] MEDS: Docusate 100mg cap ORAL SCH (08:36)
[2017-07-14] MEDS: Propranolol 40mg tab ORAL SCH (08:36)
[2017-07-14] MEDS: Heparin 5000 units/ml inj SUBQ SCH (08:37)
--- NOTE | 2017-07-14 10:40 | GI Progress Note ---
Assessment/Plan Problems: (1) Pancreatitis ICD Codes: K85.90 - Acute pancreatitis without necrosis or infection, unspecified SNOMED: 45225567 (2) GERD (gastroesophageal reflux disease) ICD Codes: K21.9 - Gastro-esophageal reflux disease without esophagitis SNOMED: 547788976 (3) Cystitis ICD Codes: N30.90 - Cystitis, unspecified without hematuria SNOMED: 28486324 Status: stable Status Narrative Discussed with Dr. Matos. Assessment/Plan CT AP reviewed >> reviewed with radiologist No acute abnormality 4 x 2.8 cm left pelvic cyst, adjacent to the ovary and therefore likely a paraovarian cyst, unchanged from 11/06/2016 Surgically absent gallbladder. Mild ectasia of the extrahepatic bile ducts, likely related to age and postcholecystectomy state. elevated lipase levels >> downtrending lipid panel reviewed >> WNL EUS vs ERCP deferred, okay for DC per GI standpoint >> will need follow up as outpatient. obtain records from [facility] regarding ?CBD stent placement adv diet ppi pain mgmt trend lipase fu labs, CA19-9, CEA Subjective Gastrointestinal/Abdominal: Reports: no symptoms Objective Last 24 Hour Vital Signs Date Time Temp Pulse Resp B/P (MAP) Pulse Ox O2 Delivery O2 Flow Rate FiO2 07/14/17 08:36 63 119/58 07/14/17 08:36 63 119/58 07/14/17 08:00 98.9 63 19 119/58 97 Room Air 98.9 07/14/17 04:00 98.6 64 18 112/56 97 Room Air 98.6 07/14/17 00:09 98.2 61 18 135/60 96 Room Air 98.2 07/13/17 20:00 98.7 69 20 119/76 98 98.7 07/13/17 20:00 Room Air 07/13/17 16:00 98.6 65 15 119/60 99 Room Air 98.6 07/13/17 12:00 97.6 68 16 145/73 100 Room Air 97.6 Intake and Output 07/13/17 07/14/17 19:00 07:00 Intake Total 360 ml 1600 ml Balance 360 ml 1600 ml Intake Oral 360 ml 480 ml IV Total 1120 ml # Voids 3 3 Laboratory Tests Test 07/14/17 06:25 White Blood Count 5.2 K/UL (4.8-10.8) Red Blood Count 4.16 M/UL (4.20-5.40) L Hemoglobin 12.5 G/DL (12.0-16.0) Hematocrit 36.3 % (37.0-47.0) L Mean Corpuscular Volume 87 FL (80-99) Mean Corpuscular Hemoglobin 30.0 PG (27.0-31.0) Mean Corpuscular Hemoglobin Concent 34.4 G/DL (32.0-36.0) Red Cell Distribution Width 11.3 % (11.6-14.8) L Platelet Count 216 K/UL (150-450) Mean Platelet Volume 7.9 FL (6.5-10.1) Neutrophils (%) (Auto) 49.2 % (45.0-75.0) Lymphocytes (%) (Auto) 34.2 % (20.0-45.0) Monocytes (%) (Auto) 14.5 % (1.0-10.0) H Eosinophils (%) (Auto) 1.1 % (0.0-3.0) Basophils (%) (Auto) 1.1 % (0.0-2.0) Sodium Level 141 MMOL/L (136-145) Potassium Level 4.5 MMOL/L (3.5-5.1) Chloride Level 107 MMOL/L (98-107) Carbon Dioxide Level 27 MMOL/L (21-32) Anion Gap 7 mmol/L (5-15) Blood Urea Nitrogen 6 mg/dL (7-18) L Creatinine 0.8 MG/DL (0.55-1.30) Estimat Glomerular Filtration Rate > 60 mL/min (>60) Glucose Level 120 MG/DL (74-106) H Calcium Level 8.0 MG/DL (8.5-10.1) L Total Bilirubin 0.6 MG/DL (0.2-1.0) Aspartate Amino Transf (AST/SGOT) 17 U/L (15-37) Alanine Aminotransferase (ALT/SGPT) 20 U/L (12-78) Alkaline Phosphatase 60 U/L (46-116) Total Protein 7.0 G/DL (6.4-8.2) Albumin 2.9 G/DL (3.4-5.0) L Globulin 4.1 g/dL Albumin/Globulin Ratio 0.7 (1.0-2.7) L Amylase Level 86 U/L (25-115) Lipase 484 U/L (73-393) H Height (Feet): 4 Height (Inches): 11.00 Weight (Pounds): 130 General Appearance: WD/WN, no apparent distress, alert Cardiovascular: normal rate Respiratory/Chest: normal breath sounds, no respiratory distress Abdominal Exam: normal bowel sounds, non tender, soft Extremities: normal range of motion, non-tender Marizol Santacruz N.P. Jul 14, 2017 10:40
[2017-07-14 12:00] VITALS: BP 128/59
[2017-07-14] MEDS ORDERED: Piperacillin/Tazobactam 3.375 GM in D5W 110 ML IVPB SCH (15:00)
--- NOTE | 2017-07-14 22:00 | Discharge Summary ---
DATE OF ADMISSION: 07/10/2017 DATE OF DISCHARGE: 07/14/2017 PERTINENT HISTORY: The patient is a 72-year-old lady, presents with epigastric and right upper quadrant pain and questionable chest pain. She did have elevated lipase. She had a cholecystectomy in 1994 and about three years ago, she had a procedure for biliary stone removal. PERTINENT PHYSICAL FINDINGS: See the dictated History and Physical. HEENT: Negative. LUNGS: Clear. HEART: Regular rhythm. ABDOMEN: Soft. There is minimal epigastric pain. No rebound. EXTREMITIES: No edema. No swollen joints. COURSE IN THE HOSPITAL: The patient had a lipase of 10,023, which improved with conservative therapy. She was initially NPO and gradually diet was advanced. She did have sciatica pain, which is chronic. Lipase prior to discharge was 484. Electrolytes were normal. She had no fever or chills. Abdominal CT scanning showed no acute abnormality. There was a 4 x 2.8 cm left pelvic cyst, likely paraovarian cyst unchanged from 10/2016. The patient was informed of her findings. She improved clinically and no endoscopic procedure was recommended at this time per the gastrointestinal strategic planning consultant, Dr. Matos. She had a CT of the lung that was negative. The patient felt better, had no nausea, vomiting, abdominal pain on the day of discharge, lungs were clear, heart regular rhythm, abdomen nontender, and she was discharged home in stable condition. FINAL DIAGNOSES: 1. Pancreatitis acute, etiology unclear. Possible retained biliary stone that was not seen on the imaging in view of her history. 2. History of lupus. 3. History of sciatica. 4. History of hypothyroidism, on replacement. 5. History of hyperlipidemia. DISCHARGE DISPOSITION: Home on a regular diet as tolerated. MEDICATIONS: Per the discharge medication list, which are her usual medicines. FOLLOWUP: She is encouraged to follow up in the office of Dr. Diego and Dr. Matos or her prior doctors as she sees there. Zhou Diego M.D. DR: ALEIDA JOB#: [id number] CC:
--- NOTE | 2017-07-15 00:15 | Progress Note ---
DATE: 07/14/2017 CARDIOLOGY PROGRESS NOTE SUBJECTIVE: No nausea, vomiting, or abdominal pain. No chest pain or shortness of breath. Tolerating diet. OBJECTIVE: VITAL SIGNS: Blood pressure 128/59, pulse 66, and respirations 19. LUNGS: Clear. CARDIAC: Regular. Normal S1 and S2. ABDOMEN: Soft and nontender. EXTREMITIES: No edema. LABORATORY DATA: Noted. IMPRESSION: 1. Recovering pancreatitis. 2. Noncardiac chest pain. 3. Mild protein-calorie malnutrition. PLAN: 1. Stable for discharge from cardiovascular standpoint. 2. Outpatient followup will be offered to assess coronary flow reserve via exercise stress testings once her hepatobiliary parameters normalize. Nikita Reddy M.D. DR: BERNARD JOB#: [id number] CC:
== END 2017-07-14 16:13 | disposition home or self-care (01) | DRG 439 ==
LOC: EMR 17:00 → 2E 17:31 → EDBEDREQ 18:15 → 4E 07-11 16:55
DX: K85.90 Acute pancreatitis without necrosis or infection, unspecified (principal); E44.1 Mild protein-calorie malnutrition; E11.9 Type 2 diabetes mellitus without complications; K21.9 Gastro-esophageal reflux disease without esophagitis; M32.9 Systemic lupus erythematosus, unspecified; E03.9 Hypothyroidism, unspecified; E78.5 Hyperlipidemia, unspecified; R07.89 Other chest pain; M54.30 Sciatica, unspecified side; I11.9 Hypertensive heart disease without heart failure; E88.81 Metabolic syndrome and other insulin resistance; Z90.49 Acquired absence of other specified parts of digestive tract; N83.202 Unspecified ovarian cyst, left side
CPT/HCPCS: 36415; 71045; 71260; 74177; 80053; 80061; 81003; 82150; 82378; 82962; 83690; 83735; 84443; 84484; 85025; 85610; 93005; 99285; J2405

== ENCOUNTER 2018-04-22 20:08 | Emergency (ER) | payer MEDICARE, OTHER ==
[~2018-04-22] VITALS: Ht 152.4 cm; Wt 64.9 kg
[~2018-04-22 20:08] MED LIST changes: +ASPIRIN EC81 MG ORAL; +DILTIAZEM 24HR120 MG ORAL; +FOLIC ACID1 MG ORAL; +ISOSORBIDE MONO20 MG PO; +LEVOTHYROXINE75 MCG ORAL; +PRAVASTATIN SOD20 M1 ORAL; +PROPRANOLOL HCL40 MG ORAL; +VITAMIN D250000 UNI1 ORAL
[2018-04-22 20:20] VITALS: BP 155/75
--- NOTE | 2018-04-22 20:30 | NUR ---
ED Nurse Note: Patient walk in c/o bilateral lower leg pain for 3x days. Patient denies injury. AO4. NAD. Ambulates steady. Urine collected; sent down to lab.
--- NOTE | 2018-04-22 20:59 | Diagnostic Imaging Report ---
EXAM: XR Left Knee, 3 views CLINICAL HISTORY: PAIN TECHNIQUE: Three views of the left knee. COMPARISON: No relevant prior studies available. FINDINGS: Bones/joints: No displaced fracture or dislocation. No large suprapatellar joint effusion evident radiographically. Mild medial and lateral compartment joint space narrowing/osteophytosis compatible with mild degenerative change. Chondrocalcinosis evident in the lateral compartment. Small quadriceps tendon enthesophyte. Soft tissues: Unremarkable. IMPRESSION: 1. No displaced fracture or dislocation. If there is strong clinical suspicion for occult fracture, noncontrast CT could be obtained for more sensitive evaluation. 2. No large suprapatellar joint effusion evident radiographically. 3. Degenerative changes as above.
[2018-04-22] MEDS ORDERED: TYLENOL EXTRA500 MG ORAL (21:17)
[2018-04-22 21:25] VITALS: BP 155/75
--- NOTE | 2018-04-22 21:25 | NUR ---
ED Nurse Note: Patient cleared for discharge per ERMD. AO4 NAD. VSS. Patient given prescriptions and discharge instructions; verbalized understanding. ID band removed. Patient ambulated steady with all personal belongings.
--- NOTE | 2018-04-23 15:40 | Emergency Room Report ---
History of Present Illness General Chief Complaint: Pain Source: Patient Present Illness HPI 73-year-old female presents ED for evaluation. Complaining of leg pain 3 days. Localizes pain to left knee. Denies any recent injury. Denies fevers chills. Pain is throbbing, 7 out of 10, nonradiating. Able to bear weight. No other aggravating relieving factors. Denies any other associated symptoms Allergies: Coded Allergies: NO KNOWN ALLERGIES (Unverified Allergy, Unknown, 03/14/15) Patient History Past Medical History: DM Past Surgical History: none Pertinent Family History: none Social History: Denies: smoking, alcohol use, drug use Last Menstrual Period: ALMAS Now: No Immunizations: UTD Reviewed Nursing Documentation: PMH: Agreed; PSxH: Agreed Nursing Documentation-PMH Past Medical History: No History, Except For Hx Hypertension: Yes Hx Pacemaker: No - LUPUS Hx Diabetes: Yes Hx Gastrointestinal Problems: Yes Hx Dialysis: No Review of Systems All Other Systems: negative except mentioned in HPI Physical Exam Vital Signs Date Time Temp Pulse Resp B/P (MAP) Pulse Ox O2 Delivery O2 Flow Rate FiO2 04/22/18 20:19 98.2 61 16 155/75 97 Room Air Sp02 EP Interpretation: reviewed, normal General Appearance: no apparent distress, alert, GCS 15, non-toxic Head: normocephalic Eyes: bilateral eye normal inspection, bilateral eye PERRL ENT: normal ENT inspection Neck: normal inspection Respiratory: normal inspection Cardiovascular #1: normal inspection Gastrointestinal: normal inspection Rectal: deferred Genitourinary: no CVA tenderness Musculoskeletal: tender - L knee Neurologic: alert, oriented x3, responsive, motor strength/tone normal, sensory intact, speech normal Psychiatric: normal inspection Skin: normal inspection Lymphatic: normal inspection Procedures Splinting Splinting : Consent: Verbal Pre-Made Type: IRENE wrap Pre-Proc Neuro Vasc Exam: normal Post-Proc Neuro Vasc Exam: normal Patient Tolerated: Well Complications: None Medical Decision Making Diagnostic Impression: Primary Impression: Knee pain Qualified Codes: M25.562 - Pain in left knee; G89.29 - Other chronic pain ER Course Hospital Course 73 yo F presents to ED c/o L knee pain Differential diagnoses include: Fracture, dislocation, sprain, contusion Clinical course Patient placed on stretcher. After initial history and physical, I ordered xrays of L knee Xrays read shows no acute fracture/dislocation. In the beginning DJD noted. Discussed findings with patient placed in irene wrap. recommend ice, elevation. Safe for discharge with close outpatient follow-up. we'll provide ortho referrals Diagnosis - knee pain Stable and discharged to home with prescription for tylenol. apply ice, keep elevated. weight bear as tolerated. Followup with PMD/ortho. Return to ED if symptoms recur or worsen Other X-Ray Diagnostic Results Other X-Ray Diagnostic Results : X-Ray ordered: L knee # of Views/Limited Vs Complete: 3 View Indication: Pain EP Interpretation: Yes Interpretation: no dislocation, no soft tissue swelling, no fractures Impression: Other - DJD Electronically Signed by: Electronically signed by Jose M Keane MD Last Vital Signs Date Time Temp Pulse Resp B/P (MAP) Pulse Ox O2 Delivery O2 Flow Rate FiO2 04/22/18 21:25 98.2 77 16 155/75 97 Room Air Status: improved Disposition: HOME, SELF-CARE Condition: Stable Scripts Acetaminophen* (TYLENOL EXTRA STRENGTH*) 500 Mg Tablet 500 MG ORAL Q8H PRN for Prn Headache/Temp > 101, #30 TAB 0 Refills Prov: Jose M Keane MD 04/22/18 Referrals: NON PHYSICIAN (PCP) Patient Instructions: Arthritis, [id number] Additional Instructions: Orthopedic urgent care: [address] [facility] [address] [place] [address] email: Jose M Keane MD Apr 23, 2018 15:40
== END 2018-04-22 21:25 | disposition home or self-care (01) ==
LOC: EMR 20:56
DX: M25.562 Pain in left knee (principal); M32.9 Systemic lupus erythematosus, unspecified; E11.9 Type 2 diabetes mellitus without complications; I10 Essential (primary) hypertension
CPT/HCPCS: 99283

== ENCOUNTER 2018-06-29 15:37 | Emergency (ER) | payer MEDICARE, OTHER ==
[~2018-06-29] VITALS: Ht 149.9 cm; Wt 65.8 kg
--- NOTE | 2018-06-29 15:51 | NUR ---
ED Nurse Note: PT WALKED IN TO ER TODAY FROM HOME. AOX4. PT C/O HEADACHE, 8/10 AND FREQUENT COUGHING X 3 DAYS AGO. PT DENIES FEVER, NAUSEA, OR VOMITING. NO COUGH PRESENT IN ER. LUNG SOUNDS CLEAR IN ALL LOBES. NO SIGNS OF RESPIRATORY DISTRESS OR RETRACTIONS NOTED.
[2018-06-29 15:52] VITALS: BP 128/74
[2018-06-29] MEDS ORDERED: GUAIFENESIN DM118 M1 ORAL ×2 (16:18→16:34)
[2018-06-29] MEDS ORDERED: CLARITIN10 M1 ORAL ×2 (16:18→16:34)
[2018-06-29] MEDS ORDERED: ZITHROMAX250 MG ORAL ×2 (16:18→16:34)
--- NOTE | 2018-06-29 16:30 | NUR ---
ED Nurse Note: PT LAYING PEACEFULLY IN BED IN NAD. AOX4. PRESCRIPTIONS AND DISCHARGE PAPERWORK EXPLAINED TO PT. PT VERBALIZES UNDERSTANDING AND ALL QUESTIONS ANSWERED. DISCHARGE PAPERWORK GIVEN TO PT AND ID WRISTBAND REMOVED. PT WALKED OUT OF ER WITH STEADY GAIT AND ALL BELONGINGS.
--- NOTE | 2018-06-29 19:34 | Emergency Room Report ---
History of Present Illness General Chief Complaint: Upper Respiratory Illness Source: Patient Present Illness HPI Patient is a 73-year-old female who presented after increased nasal congestion and nonproductive cough. Patient gradual onset of symptoms. She reports having some mild headache. She denies any fever. Patient had onset of symptoms several days ago. She denies any chest discomfort or shortness of breath. She denies any new leg pain or swelling. Allergies: Coded Allergies: NO KNOWN ALLERGIES (Unverified Allergy, Unknown, 03/14/15) Patient History Past Medical History: see triage record Last Menstrual Period: na Reviewed Nursing Documentation: PMH: Agreed; PSxH: Agreed Nursing Documentation-PMH Past Medical History: No History, Except For Hx Hypertension: Yes Hx Pacemaker: No - LUPUS Hx Diabetes: Yes Hx Gastrointestinal Problems: Yes Hx Dialysis: No Review of Systems All Other Systems: negative except mentioned in HPI Physical Exam Vital Signs Date Time Temp Pulse Resp B/P (MAP) Pulse Ox O2 Delivery O2 Flow Rate FiO2 06/29/18 15:42 98.2 60 20 133/72 95 Room Air General Appearance: well appearing, no apparent distress, alert, GCS 15 Head: normocephalic, atraumatic ENT: hearing grossly normal, normal voice Neck: full range of motion, supple Respiratory: chest non-tender, lungs clear, normal breath sounds, no respiratory distress, speaking full sentences Gastrointestinal: normal inspection Musculoskeletal: normal inspection, back normal, no calf tenderness Neurologic: normal inspection, alert, oriented x3, responsive, normal gait Psychiatric: normal inspection, mood/affect normal Skin: no rash Medical Decision Making Diagnostic Impression: Primary Impression: Urinary tract infection Additional Impression: Sinusitis ER Course Patient presented for his cough. Differential diagnosis included but was not limited to bronchitis, pneumonia, pulmonary embolism, pericarditis, asthma, foreign body. Patient has a benign exam and does not appear to require any further imaging or laboratory testing at this time. Patient given prescriptions for medications for symptomatic treatment. She is given prescription for medications for urinary tract infection. Patient appears to have some likelihood of atypical organism causing the cough. Patient will be discharged home. She is to follow-up with her primary care physician for recheck. Last Vital Signs Date Time Temp Pulse Resp B/P (MAP) Pulse Ox O2 Delivery O2 Flow Rate FiO2 06/29/18 16:29 98.3 66 16 122/76 99 Room Air Status: improved Disposition: HOME, SELF-CARE Condition: Stable Scripts Guaifenesin/Dextromethorphan (Guaifenesin Dm Syrup) 5 Ml Syrup 1 TSP ORAL Q8H, #118 ML 0 Refills Prov: Dannie Duong MD 06/29/18 Azithromycin* (ZITHROMAX*) 250 Mg Tablet 250 MG ORAL DAILY, #6 TAB 0 Refills Take two tables once daily for 1 day, then one tablet once daily for 4 days. Prov: Dannie Duong MD 06/29/18 Loratadine (CLARITIN) 10 Mg Tab.rapdis 10 MG ORAL DAILY, #20 TAB Prov: Dannie Duong MD 06/29/18 Referrals: NON PHYSICIAN (PCP) Patient Instructions: Urinary Tract Infection Dannie Duong MD Jun 29, 2018 19:34
== END 2018-06-29 16:30 | disposition home or self-care (01) ==
LOC: EMR 16:10
DX: N39.0 Urinary tract infection, site not specified (principal); J32.9 Chronic sinusitis, unspecified; R05 Cough; E11.9 Type 2 diabetes mellitus without complications; M32.9 Systemic lupus erythematosus, unspecified
CPT/HCPCS: 99282

== ENCOUNTER 2018-09-29 21:49 | Emergency (ER) | payer MEDICARE, OTHER ==
[~2018-09-29] VITALS: Ht 147.3 cm; Wt 56.7 kg
[~2018-09-29 21:49] MED LIST changes: +CLARITIN10 M1 ORAL; +ZITHROMAX250 MG ORAL
--- NOTE | 2018-09-29 22:00 | NUR ---
ED Nurse Note: Pt walked in ER and c/o abdominal pain nausea and burning when walking her dog this evening. Pt is AO x 4times, VSS,on room air no distress. BANDAR seen Pt at bedside.
--- NOTE | 2018-09-29 22:10 | NUR ---
ED Nurse Note: blood sample sent to lab.
--- NOTE | 2018-09-29 22:30 | Emergency Room Report ---
History of Present Illness General Chief Complaint: Abdominal Pain Source: Patient, Medical Record Present Illness HPI This is a 73-year-old female with history of diabetes, high blood pressure, chronic abdominal pain. She presents with chief complaint of left-sided chest pain. Onset this morning after her visit to the books binder. Pain in this with epigastric area rating around her breast area. [place] gassy. Worse when she move her body certain way. No exertional component. No diaphoresis. She felt nervous to do so she came in. Denies any other complaint. Pain is achy in nature. 7 out of 10. Allergies: Coded Allergies: NO KNOWN ALLERGIES (Unverified Allergy, Unknown, 03/14/15) Patient History Past Medical History: see triage record, old chart reviewed, DM, HTN Past Surgical History: other Pertinent Family History: none Social History: Denies: smoking Now: No Immunizations: other Reviewed Nursing Documentation: PMH: Agreed; PSxH: Agreed Nursing Documentation-PMH Hx Hypertension: Yes Hx Pacemaker: No - LUPUS Hx Diabetes: Yes Hx Gastrointestinal Problems: Yes Hx Dialysis: No Review of Systems Eye: Denies: eye pain, blurred vision ENT: Denies: ear pain, nose congestion, throat swelling Respiratory: Denies: cough, shortness of breath Cardiovascular: Reports: chest pain; Denies: palpitations Gastrointestinal: Reports: abdominal pain; Denies: diarrhea, nausea, vomiting Musculoskeletal: Denies: back pain, joint pain Skin: Denies: rash Neurological: Denies: headache, numbness Endocrine: Denies: increased thirst, increased urine Hematologic/Lymphatic: Denies: easy bruising All Other Systems: negative except mentioned in HPI Physical Exam Vital Signs Date Time Temp Pulse Resp B/P (MAP) Pulse Ox O2 Delivery O2 Flow Rate FiO2 09/29/18 21:53 98.2 58 16 145/76 (99) 99 Room Air Vitals unremarkable Sp02 EP Interpretation: reviewed, normal General Appearance: well appearing, no apparent distress, alert Head: normocephalic, atraumatic Eyes: bilateral eye PERRL, bilateral eye EOMI ENT: hearing grossly normal, normal pharynx Neck: full range of motion, supple, no meningismus Respiratory: chest non-tender, lungs clear, normal breath sounds, other - Chest wall without any rash or vesicular lesion. Cardiovascular #1: regular rate, rhythm, no murmur Gastrointestinal: normal bowel sounds, non tender, no mass, no organomegaly, no bruit, non-distended Musculoskeletal: back normal, gait/station normal, normal range of motion Psychiatric: mood/affect normal Medical Decision Making Diagnostic Impression: Primary Impression: Chest pain Qualified Codes: R07.9 - Chest pain, unspecified ER Course Patient presents with atypical chest pain. Worse with movement. Reproducible with palpation. No evidence of ACS, PE, dissection to name a few. Will discharge home. EKG Diagnostic Results Rate: normal Rhythm: NSR ST Segments: no acute changes ASA given to the pt in ED: Yes Rhythm Strip Diag. Results EP Interpretation: yes Rate: 55 Rhythm: NSR, no PVC's, no ectopy Chest X-Ray Diagnostic Results Chest X-Ray Diagnostic Results : Chest X-Ray Ordered: Yes # of Views/Limited/Complete: 1 View Indication: Chest Pain EP Interpretation: Yes Interpretation: no consolidation, no effusion, no pneumothorax, no acute cardiopulmonary disease Impression: No acute disease Electronically Signed by: Harmeet Santacruz MD Last Vital Signs Date Time Temp Pulse Resp B/P (MAP) Pulse Ox O2 Delivery O2 Flow Rate FiO2 09/29/18 21:53 98.2 58 16 145/76 (99) 99 Room Air Status: improved Disposition: HOME, SELF-CARE Condition: Stable Additional Instructions: Follow-up with your doctor in 7 days. Return if symptoms worsen. Harmeet Santacruz MD Sep 29, 2018 22:30
[2018-09-29] MEDS: Aspirin Baby 81mg ORAL ONE (22:31)
[2018-09-29] MEDS: Ketorolac 30mg Inj IV ONE (22:32)
--- NOTE | 2018-09-29 22:40 | NUR ---
ED Nurse Note: X ray at bedside.
[2018-09-29 22:47] VITALS: BP 123/72
[2018-09-29 22:51] LABS: ANION GAP 8 mmol/L (5-15); BASOPHILS % (AUTO) 1.2 % (0.0-2.0); BLOOD UREA NITROGEN 13 mg/dL (7-18); CALCIUM 8.4 MG/DL (8.5-10.1); CARBON DIOXIDE 28 MMOL/L (21-32); CHLORIDE 103 MMOL/L (98-107); CREATININE 0.8 MG/DL (0.55-1.30); EOSINOPHILS % (AUTO) 3.3 % (0.0-3.0); HEMOGLOBIN 12.7 G/DL (12.0-16.0); LYMPHOCYTES % (AUTO) 36.2 % (20.0-45.0); MEAN CORPUSCULAR VOLUME 86 FL (80-99); MONOCYTES % (AUTO) 7.9 % (1.0-10.0); NEUTROPHILS % (AUTO) 51.3 % (45.0-75.0); PLATELET COUNT 285 K/UL (150-450); POTASSIUM 3.9 MMOL/L (3.5-5.1); RED CELL DISTRIBUTION WIDTH 11.2 % (11.6-14.8); SODIUM 139 MMOL/L (136-145); WHITE BLOOD COUNT 7.9 K/UL (4.8-10.8)
[2018-09-29 23:04] LABS: ALANINE AMINOTRANSFERASE 18 U/L (12-78); ALBUMIN 3.6 G/DL (3.4-5.0); ALKALINE PHOSPHATASE 117 U/L (46-116); ASPARTATE AMINO TRANSFERASE 19 U/L (15-37); BILIRUBIN,TOTAL 0.2 MG/DL (0.2-1.0); CKMB 1.1 NG/ML (0.0-3.6); CREATINE KINASE 94 U/L (26-308)
[2018-09-29 23:27] VITALS: BP 119/78
--- NOTE | 2018-09-29 23:27 | NUR ---
ER DISCHARGE NOTE: Patient is cleared to be discharged per ERMD, pt is aox4, on room air, with stable vital signs. pt was given dc and prescription instructions, pt was able to verbalize understanding, pt id band and iv site removed without complications. pt is able to ambulate with steady gait. pt took all belongings. Pt will Uber home.
[2018-09-29 23:28] VITALS: BP 119/78
--- NOTE | 2018-09-30 10:58 | Diagnostic Imaging Report ---
Indication: Chest pain Comparison: 07/10/2017 A single view chest radiograph was obtained. Findings: No definite infiltrate or pulmonary vascular congestion identified. The heart is enlarged. The aorta is mildly enlarged consistent with atherosclerotic vascular disease. The bones are osteopenic. Impression: No acute disease
== END 2018-09-29 23:32 | disposition home or self-care (01) ==
LOC: EMR 22:39
DX: R07.89 Other chest pain (principal); I10 Essential (primary) hypertension; E11.9 Type 2 diabetes mellitus without complications; M32.9 Systemic lupus erythematosus, unspecified
CPT/HCPCS: 36415; 71045; 80053; 82550; 82553; 83880; 84484; 85025; 93005; 96374; 99284; J1885

== ENCOUNTER 2018-12-25 14:53 | Emergency (ER) | payer MEDICARE, OTHER ==
[~2018-12-25] VITALS: Ht 154.9 cm; Wt 63.5 kg
--- NOTE | 2018-12-25 15:00 | NUR ---
ED Nurse Note: pt presents to ED c/o left lower back pain that radiates to her left leg. pt denies falling, any injury or trauma to the area. pt reports sitting and watching TV then going to stand up when the pain started 2 days ago. pt mentions that she did have a procedure to fix her prolapsed uterus in September. pt denies any changes in urination or BMs and rates the px a 6 or 7 out of 10.
[2018-12-25] MEDS ORDERED: Isovue-300 100ml vial INJ PRN (15:15)
--- NOTE | 2018-12-25 15:25 | NUR ---
ED Nurse Note: pt able to ambulate to restroom but she walks slowly and gait is slightly unsteady. RN assisting pt
[2018-12-25 15:40] VITALS: BP 136/62
[2018-12-25] MEDS ORDERED: UNOBMED (16:00)
[2018-12-25 16:05] LABS: BASOPHILS % (AUTO) 0.7 % (0.0-2.0); EOSINOPHILS % (AUTO) 1.7 % (0.0-3.0); HEMATOCRIT 39.2 % (37.0-47.0); HEMOGLOBIN 12.9 G/DL (12.0-16.0); LYMPHOCYTES % (AUTO) 26.2 % (20.0-45.0); MEAN CORPUSCULAR VOLUME 86 FL (80-99); MONOCYTES % (AUTO) 9.4 % (1.0-10.0); NEUTROPHILS % (AUTO) 62.1 % (45.0-75.0); PLATELET COUNT 298 K/UL (150-450); RED BLOOD COUNT 4.55 M/UL (4.20-5.40); RED CELL DISTRIBUTION WIDTH 11.8 % (11.6-14.8); WHITE BLOOD COUNT 9.3 K/UL (4.8-10.8)
[2018-12-25 16:14] LABS: ANION GAP 4 mmol/L (5-15); BLOOD UREA NITROGEN 21 mg/dL (7-18); CALCIUM 8.7 MG/DL (8.5-10.1); CARBON DIOXIDE 28 MMOL/L (21-32); CHLORIDE 108 MMOL/L (98-107); CREATININE 0.9 MG/DL (0.55-1.30); SODIUM 140 MMOL/L (136-145)
[2018-12-25 16:19] LABS: ALANINE AMINOTRANSFERASE 26 U/L (12-78); ALBUMIN 3.6 G/DL (3.4-5.0); ALBUMIN/GLOBULIN RATIO 0.9 (1.0-2.7); ALKALINE PHOSPHATASE 107 U/L (46-116); ASPARTATE AMINO TRANSFERASE 23 U/L (15-37); BILIRUBIN,TOTAL 0.3 MG/DL (0.2-1.0)
[2018-12-25 16:21] LABS: APPEARANCE,URINE CLEAR; BILIRUBIN, URINE NEGATIVE (NEGATIVE); COLOR,URINE PALE YELLOW; GLUCOSE, URINE (UA) NEGATIVE (NEGATIVE); KETONES,URINE NEGATIVE (NEGATIVE); LEUKOCYTE ESTERASE ,URINE 2+ (NEGATIVE); NITRITE,URINE NEGATIVE (NEGATIVE); PH,URINE 5 (4.5-8.0); PROTEIN,URINE NEGATIVE (NEGATIVE); UROBILINOGEN,URINE NORMAL MG/DL (0.0-1.0)
--- NOTE | 2018-12-25 17:15 | Diagnostic Imaging Report ---
Indication: Left lower back pain radiating to her left leg. No history of trauma Technique: No oral contrast. IV administration nonionic contrast. Spiral acquisitions obtained through the pelvis. Multiplanar reconstructions generated. Total dose length product 930 mGycm. CTDIvol(s) 24 mGy. Dose reduction achieved using automated exposure control Comparison: Abdomen pelvis CT dated 07/12/2017 Findings: There is again demonstrated a small fat-containing left inguinal hernia. There is equivocal mild bladder wall thickening, although the appearance is similar to the previous study. The uterus small fat-containing left inguinal hernia appears unremarkable. 4 cm paraovarian cyst is again demonstrated on the left, unchanged. The appendix is normal. The visualized bowel appears unremarkable. The bones are except for degenerative spondylosis changes, which appear to have progressed somewhat since the previous study.. Impression: Degenerative spondylosis, perhaps slightly worse than prior study 07/12/2017 Unchanged 4 cm left paraovarian cyst No acute process Incidental finding of small fat-containing left inguinal hernia The CT scanner at [facility] is accredited by the [employer] and the scans are performed using protocols designed to limit radiation exposure to as low as reasonably achievable to attain images of sufficient resolution adequate for diagnostic evaluation.
--- NOTE | 2018-12-25 17:19 | Emergency Room Report ---
History of Present Illness General Chief Complaint: Pain Source: Medical Record (Eric Hayden) Present Illness HPI 73-year-old female with history of diabetes, hypertension, fibromyalgia and lupus all currently controlled here complaining of sudden onset of left-sided hip pain radiating to the left buttocks area as well as urinary frequency. Patient reports that 3 months ago she had a uterine prolapse and had an operation. Denies any fever and chills, vaginal discharge however complains of urinary. Denies any blood in urine. Reports that the onset of the hip pain and the urinary symptoms same. Denies any tingling and numbness. Has not taken medication for symptom relief. Denies chest pain, shortness of breath, palpitation, no other associated symptoms. (Eric Hayden) Allergies: Coded Allergies: NO KNOWN ALLERGIES (Unverified Allergy, Unknown, 03/14/15) Patient History Past Medical History: see triage record Past Surgical History: unable to obtain Pertinent Family History: none Now: No Immunizations: UTD Reviewed Nursing Documentation: PMH: Agreed; PSxH: Agreed (Eric Hayden) Nursing Documentation-PMH Past Medical History: No History, Except For Hx Hypertension: Yes Hx Pacemaker: No - LUPUS Hx Diabetes: Yes Hx Gastrointestinal Problems: Yes Hx Dialysis: No (Eric Hayden) Review of Systems All Other Systems: negative except mentioned in HPI (Eric Hayden) Physical Exam Vital Signs Date Time Temp Pulse Resp B/P (MAP) Pulse Ox O2 Delivery O2 Flow Rate FiO2 12/25/18 14:58 98.2 68 18 141/73 (95) 96 Room Air Sp02 EP Interpretation: reviewed, normal General Appearance: no apparent distress, alert, GCS 15, non-toxic Head: normocephalic, atraumatic Eyes: bilateral eye normal inspection, bilateral eye PERRL ENT: hearing grossly normal, normal pharynx, no angioedema, normal voice Neck: full range of motion, supple/symm/no masses Respiratory: chest non-tender, lungs clear, normal breath sounds, no rhonchi, speaking full sentences Cardiovascular #1: regular rate, rhythm, no edema, no murmur Gastrointestinal: normal bowel sounds, non tender, soft, non-distended, no guarding, no rebound Rectal: deferred Genitourinary: normal inspection, no CVA tenderness Musculoskeletal: back normal, gait/station normal, normal range of motion, non- tender, no calf tenderness Neurologic: alert, oriented x3, responsive, motor strength/tone normal, sensory intact, speech normal Psychiatric: judgement/insight normal, memory normal, mood/affect normal, no suicidal/homicidal ideation Skin: no rash Lymphatic: no adenopathy (Eric Hayden) Medical Decision Making PA Attestation All my diagnosis and treatment plans were reviewed ad discussed with my supervising physician Dr. Keane (Eric Hayden) Medicare Attestation The history of Alicia Tavarez has been reviewed and management options for her have been examined and discussed by Jose M Keane. I have personally examined and interviewed the patient. (Jose M Keane MD) Diagnostic Impression: Primary Impression: UTI (urinary tract infection) Additional Impressions: Lumbar strain Left inguinal hernia ER Course 73-year-old female with history of diabetes, hypertension, fibromyalgia and lupus all currently controlled here complaining of sudden onset of left-sided hip pain radiating to the left buttocks area as well as urinary frequency. Patient reports that 3 months ago she had a uterine prolapse and had an operation. Denies any fever and chills, vaginal discharge however complains of urinary. Denies any blood in urine. Reports that the onset of the hip pain and the urinary symptoms same. Denies any tingling and numbness. Has not taken medication for symptom relief. Denies chest pain, shortness of breath, palpitation, no other associated symptoms. Ddx considered but are not limited to: Lumbar spine sprain, strain, fracture, contusion, neuropathy, sciatica, UTI, adhesions postoperative, Vital signs: are WNL, pt. is afebrile H&PE are most consistent with: Lumbar strain, UTI, left inguinal hernia incidental ORDERS: CT pelvis with contrast, CBC, CMP, UA, Macrobid, Tylenol, lidocaine patch ER intervention: Tylenol DISCHARGE: At this time pt. is stable for d/c to home. Will provide printed patient care instructions, and any necessary prescriptions. Care plan and follow up instructions have been discussed with the patient prior to discharge. I advised the patient to follow-up with primary care provider, this time no signs of postoperative complications noted (Eric Hayden) CT/MRI/US Diagnostic Results CT/MRI/US Diagnostic Results : Imaging Test Ordered: CT pelvis Impression Inguinal hernia, all within normal limits (Eric Hayden) Last Vital Signs Date Time Temp Pulse Resp B/P (MAP) Pulse Ox O2 Delivery O2 Flow Rate FiO2 12/25/18 16:20 98.2 12/25/18 15:40 70 20 136/62 96 Room Air (Eric Hayden) Disposition: HOME, SELF-CARE Condition: Stable Scripts Nitrofurantoin Monohyd/M-Cryst* (MACROBID 100 MG*) 100 Mg Capsule 100 MG ORAL EVERY 12 HOURS for 7 Days, #14 CAP Prov: Eric Hayden 12/25/18 Methocarbamol* (ROBAXIN-500*) 500 Mg Tablet 500 MG ORAL TID PRN for For Pain, #15 TAB 0 Refills Prov: Eric Hayden 12/25/18 Acetaminophen* (ACETAMINOPHEN EXTRA STRENGTH*) 500 Mg Tablet 500 MG ORAL Q6H, #30 TAB Prov: Eric Hayden 12/25/18 Lidocaine Patch* (Lidoderm Patch*) 1 Each Adh..patch 1 PATCH TOPIC DAILY, #7 PATCH 0 Refills Patch(es) may remain in place for up to 12 hours in any 24-hour period. Prov: Eric Hayden 12/25/18 Referrals: NON PHYSICIAN (PCP) Patient Instructions: Lumbosacral Strain, Urinary Tract Infection, [id number] Additional Instructions: Avoid strenuous physical activity take medication as directed follow-up with your primary care provider and if worsening symptoms return to the emergency room Eric Hayden Dec 25, 2018 17:19 Jose M Keane MD Dec 30, 2018 21:05
[2018-12-25] MEDS ORDERED: NITROFURANTOIN100 M2 ORAL (17:20)
[2018-12-25] MEDS ORDERED: ACETAMINOPHEN500 M3 ORAL (17:20)
[2018-12-25] MEDS ORDERED: ROBAXIN-500MG ORAL (17:20)
[2018-12-25] MEDS ORDERED: LIDODERM700 M1 TOPIC (17:20)
[2018-12-25 17:38] VITALS: BP 136/62
--- NOTE | 2018-12-25 17:38 | NUR ---
ER DISCHARGE NOTE: Patient is cleared to be discharged per ERMD, pt is aox4, on room air, with stable vital signs. pt was given dc and prescription instructions, pt was able to verbalize understanding, pt id band removed. pt is able to ambulate with steady gait. pt took all belongings.
== END 2018-12-25 17:38 | disposition home or self-care (01) ==
LOC: EMR 15:10
DX: K40.90 Unilateral inguinal hernia, without obstruction or gangrene, not specified as recurrent (principal); S39.012A Strain of muscle, fascia and tendon of lower back, initial encounter; N39.0 Urinary tract infection, site not specified; I10 Essential (primary) hypertension; E11.9 Type 2 diabetes mellitus without complications; M32.9 Systemic lupus erythematosus, unspecified; M79.7 Fibromyalgia; X58.XXXA Exposure to other specified factors, initial encounter; Y92.9 Unspecified place or not applicable
CPT/HCPCS: 36415; 72193; 80053; 81001; 85025; 99284; Q9967

== ENCOUNTER 2019-12-06 13:30 | Emergency (ER) | payer MEDICARE, OTHER ==
[~2019-12-06] VITALS: Ht 152.4 cm; Wt 67.1 kg
[~2019-12-06 13:30] MED LIST changes: +ACETAMINOPHEN500 M3 ORAL; +CHLOR-TRIMETON4 MG PO; +LIDODERM700 M1 TOPIC; +ROBAXIN-500MG ORAL; +ROBITUSSIN COU237 M2 PO; +UNOBMED
--- NOTE | 2019-12-06 14:21 | Emergency Room Report ---
History of Present Illness General Chief Complaint: Lower Extremity Injury Source: Patient Present Illness HPI 74-year-old female with history of diabetes and hypertension currently taking medication controlled here complaining of left ankle and foot pain after twisting it last night when going up the stairs. Denies any fall or injury or head injury. Denies loss of consciousness. Rates the pain 5 out of 10 without radiation and worsening when putting pressure on the foot. Denies any tingling numbness. Has full range of motion. Denies any calf pain or calf tenderness. No bony tenderness noted, no obvious swelling noted. Has been taking Tylenol for pain with minimal relief. Patient is neurovascularly intact. Allergies: Coded Allergies: NO KNOWN ALLERGIES (Unverified Allergy, Unknown, 03/14/15) COVID-19 Screening Contact w/high risk pt: No Experienced COVID-19 symptoms?: No COVID-19 Testing performed [employer]NAGER: No Patient History Past Medical History: see triage record Past Surgical History: none Pertinent Family History: none Last Menstrual Period: na Now: No Immunizations: UTD Reviewed Nursing Documentation: PMH: Agreed; PSxH: Agreed Nursing Documentation-PMH Past Medical History: No History, Except For Hx Hypertension: Yes Hx Pacemaker: No - LUPUS Hx Diabetes: Yes Hx Gastrointestinal Problems: Yes Hx Dialysis: No Review of Systems All Other Systems: negative except mentioned in HPI Physical Exam Vital Signs Date Time Temp Pulse Resp B/P (MAP) Pulse Ox O2 Delivery O2 Flow Rate FiO2 12/06/19 13:33 98.2 68 16 122/68 (86) 98 Room Air Sp02 EP Interpretation: reviewed, normal General Appearance: no apparent distress, alert, GCS 15, non-toxic Head: normocephalic, atraumatic Eyes: bilateral eye normal inspection, bilateral eye PERRL ENT: hearing grossly normal, normal pharynx, no angioedema, normal voice Neck: full range of motion, supple/symm/no masses Respiratory: chest non-tender, lungs clear, normal breath sounds, no rhonchi, no retraction, speaking full sentences Cardiovascular #1: regular rate, rhythm, no edema, no murmur Cardiovascular #2: 2+ dorsalis pedis (R), 2+ dorsalis pedis (L) Gastrointestinal: normal bowel sounds, non tender, soft, non-distended, no guarding, no rebound Rectal: deferred Genitourinary: no CVA tenderness Musculoskeletal: back normal, no calf tenderness, pelvis stable, no lower extremity edema, non-tender Neurologic: alert, motor strength/tone normal, oriented x3, sensory intact, responsive, speech normal Psychiatric: judgement/insight normal, memory normal, mood/affect normal, no suicidal/homicidal ideation Skin: no rash Lymphatic: no adenopathy Procedures Splinting Splinting : Consent: Verbal Location: Left foot Pre-Made Type: Postop shoe given Pre-Proc Neuro Vasc Exam: normal Post-Proc Neuro Vasc Exam: normal Patient Tolerated: Well Complications: None Medical Decision Making PA Attestation Diagnosis and treatment plans were reviewed and discussed with my supervising physician Dr. Dinh Diagnostic Impression: Primary Impression: Ankle sprain Additional Impression: Foot sprain ER Course 74-year-old female with history of diabetes and hypertension currently taking medication controlled here complaining of left ankle and foot pain after twisting it last night when going up the stairs. Denies any fall or injury or head injury. Denies loss of consciousness. Rates the pain 5 out of 10 without radiation and worsening when putting pressure on the foot. Denies any tingling numbness. Has full range of motion. Denies any calf pain or calf tenderness. No bony tenderness noted, no obvious swelling noted. Has been taking Tylenol for pain with minimal relief. Patient is neurovascularly intact. Ddx considered but are not limited to: ankle sprain, ankle strain, ankle fracture, ankle contusion, foot sprain versus strain versus fracture Vital signs: are WNL, pt. is afebrile H&PE are most consistent with: Foot sprain, ankle sprain ORDERS: ankle x-ray and foot x-ray, ibuprofen, Robaxin ED INTERVENTIONS: Remington wrap and postoperative shoe DISCHARGE: At this time pt. is stable for d/c to home. Will provide printed patient care instructions, and any necessary prescriptions. Care plan and follow up instructions have been discussed with the patient prior to discharge. Patient take medication as directed, follow primary care provider, if worsening symptoms return to the emergency room Other X-Ray Diagnostic Results Other X-Ray Diagnostic Results #1: X-Ray ordered: ankle # of Views/Limited Vs Complete: 3 View Indication: Pain EP Interpretation: Yes PA Xray: Interpretation reviewed, by supervising MD, and agrees with findings. Interpretation: no dislocation, no soft tissue swelling, no fractures Impression: No acute disease Electronically Signed by: Eric Dominguez PA-C Other X-Ray Diagnostic Results #2: X-Ray ordered: foot # of Views/Limited Vs Complete: 3 View Indication: Pain EP Interpretation: Yes PAMELA Xray: Interpretation reviewed, by supervising MD, and agrees with findings. Interpretation: no dislocation, no soft tissue swelling, no fractures Impression: No acute disease Electronically Signed by: Eric SANTIAGO Scribe Text Spur noted calcaneus Last Vital Signs Date Time Temp Pulse Resp B/P (MAP) Pulse Ox O2 Delivery O2 Flow Rate FiO2 12/06/19 13:33 98.2 68 16 122/68 (86) 98 Room Air Disposition: HOME, SELF-CARE Condition: Stable Scripts Ibuprofen* (MOTRIN*) 600 Mg Tablet 600 MG ORAL Q8H PRN for FOR PAIN, #30 TAB 0 Refills Prov: Eric Hayden 12/06/19 Methocarbamol* (ROBAXIN-500*) 500 Mg Tablet 500 MG ORAL TID PRN for For Pain, #15 TAB 0 Refills Prov: Eric Hayden 12/06/19 Patient Instructions: Foot Sprain, Ankle Sprain Additional Instructions: Take medication as directed, follow-up with your primary care provider or clinical lab specialist, due to your arthritis there might be a hairline fracture that might have gotten missed in the interpretation of x-ray studies keep the boot on, avoid putting a lot of pressure on your foot and ankle, follow-up with clinical lab specialist, if worsening symptoms return to the emergency room. Eric Hayden Dec 06, 2019 14:21
[2019-12-06] MEDS ORDERED: IBUPROFEN600 M1 ORAL (14:24)
[2019-12-06] MEDS ORDERED: ROBAXIN-500MG ORAL (14:24)
--- NOTE | 2019-12-06 14:34 | Diagnostic Imaging Report ---
EXAM: X-RAY XRAY Ankle Compl Min 3v L CLINICAL HISTORY: Trauma with ankle pain. COMPARISON: None FINDINGS: Total of 3 views of the left ankle were obtained. Alignment is anatomic. There is no fracture, bony lesions or erosions. Joint spaces are unremarkable. Surrounding soft tissue is normal. IMPRESSION: NO FRACTURE.
--- NOTE | 2019-12-06 14:38 | Diagnostic Imaging Report ---
EXAM: X-RAY XRAY Foot Complete L CLINICAL HISTORY: Trauma and foot pain. COMPARISON: None FINDINGS: Total of 3 views of the left foot were obtained. Alignment is anatomic. There is no fracture, bony lesions or erosions. There is a small calcaneal spur. Joint spaces appear well maintained. Surrounding soft tissue is normal. IMPRESSION: NO FRACTURE OR MALALIGNMENT. SMALL CALCANEAL SPUR.
[2019-12-06 14:45] VITALS: BP 118/65
== END 2019-12-06 14:45 | disposition home or self-care (01) ==
LOC: EMR 13:45
DX: S93.402A Sprain of unspecified ligament of left ankle, initial encounter (principal); S93.602A Unspecified sprain of left foot, initial encounter; I10 Essential (primary) hypertension; E11.8 Type 2 diabetes mellitus with unspecified complications; X50.1XXA Overexertion from prolonged static or awkward postures, initial encounter; Y93.01 Activity, walking, marching and hiking; Y92.018 Other place in single-family (private) house as the place of occurrence of the external cause
CPT/HCPCS: 99284

== ENCOUNTER 2019-12-24 00:18 | Emergency (ER) | payer MEDICARE, OTHER ==
[~2019-12-24] VITALS: Ht 152.4 cm; Wt 52.2 kg
[~2019-12-24 00:18] MED LIST changes: +IBUPROFEN600 M1 ORAL
[2019-12-24 00:40] VITALS: BP 113/87
[2019-12-24] MEDS ORDERED: DIPHENHYDRAMINE25 M1 ORAL (00:52)
[2019-12-24 01:05] VITALS: BP 120/82
--- NOTE | 2019-12-24 04:15 | Emergency Room Report ---
History of Present Illness General Chief Complaint: Skin Rash/Abscess Source: Patient Present Illness HPI 74-year-old female presents the ED for evaluation. States she has been having itchiness to her hands and feet x1 day. Denies any rash. Denies any tongue swelling or throat swelling. Denies any known food or drug allergies. No other aggravating relieving factors. Denies any other associated symptoms Allergies: Coded Allergies: NO KNOWN ALLERGIES (Unverified Allergy, Unknown, 03/14/15) COVID-19 Screening Contact w/high risk pt: No Experienced COVID-19 symptoms?: No COVID-19 Testing performed WREATH MAKER: No Patient History Past Medical History: HTN Past Surgical History: none Pertinent Family History: none Social History: Denies: smoking, alcohol use, drug use Now: No Immunizations: UTD Reviewed Nursing Documentation: PMH: Agreed; PSxH: Agreed Nursing Documentation-PMH Hx Hypertension: Yes Hx Pacemaker: No - LUPUS Hx Diabetes: Yes Hx Gastrointestinal Problems: Yes Hx Dialysis: No Review of Systems All Other Systems: negative except mentioned in HPI Physical Exam Vital Signs Date Time Temp Pulse Resp B/P (MAP) Pulse Ox O2 Delivery O2 Flow Rate FiO2 12/24/19 00:23 98.1 78 18 113/87 (96) 96 Room Air Sp02 EP Interpretation: reviewed, normal General Appearance: no apparent distress, alert, GCS 15, non-toxic Head: normocephalic, atraumatic Eyes: bilateral eye normal inspection, bilateral eye PERRL ENT: hearing grossly normal, normal pharynx, no angioedema, normal voice Neck: full range of motion, supple/symm/no masses Respiratory: chest non-tender, lungs clear, normal breath sounds, speaking full sentences Cardiovascular #1: regular rate, rhythm, no edema Cardiovascular #2: 2+ carotid (R), 2+ carotid (L), 2+ radial (R), 2+ radial (L), 2+ dorsalis pedis (R), 2+ dorsalis pedis (L) Gastrointestinal: normal bowel sounds, non tender, soft, non-distended, no guarding, no rebound Rectal: deferred Genitourinary: normal inspection, no CVA tenderness Musculoskeletal: back normal, normal range of motion, gait/station normal, non- tender Neurologic: alert, motor strength/tone normal, oriented x3, sensory intact, responsive, speech normal Psychiatric: judgement/insight normal, memory normal, mood/affect normal, no suicidal/homicidal ideation Reflexes: 3+ bicep (R), 3+ bicep (L), 3+ tricep (R), 3+ tricep (L), 3+ knee (R), 3+ knee (L) Lymphatic: no adenopathy Medical Decision Making Diagnostic Impression: Primary Impression: Itching ER Course Hospital Course 74 yo F presents to ED with itching hands and feet Differential diagnoses include: Cellulitis, dermatitis, insect bite, abscess Clinical course Patient placed on stretcher. After initial history, physical exam reveals an elderly female in no acute distress. On exam there no evidence of a rash to the hands or feet. No erythema or induration. Patient afebrile, nontoxic-appearing. I do not suspect allergic reaction. Will prescribe Benadryl. Recommend close follow-up with her PMD. Given Benadryl in ED Diagnosis - itching stable and discharged to home with prescription for benedryl. Instructed to followup with PMD. Instructed return to ED if symptoms recur or worsen Last Vital Signs Date Time Temp Pulse Resp B/P (MAP) Pulse Ox O2 Delivery O2 Flow Rate FiO2 12/24/19 01:05 98.1 70 20 120/82 98 Room Air Status: improved Disposition: HOME, SELF-CARE Condition: Stable Scripts Diphenhydramine Hcl* (DIPHENHYDRAMINE HCL*) 25 Mg Capsule 25 MG ORAL Q6H PRN for Itching, #30 CAP 0 Refills Prov: Jose M Keane MD 12/24/19 Referrals: NOT CHOSEN IPA/,REFERRING (PCP) Reva Amezquita [facility]. Patient Instructions: Pruritus Jose M Keane MD Dec 24, 2019 04:15
== END 2019-12-24 01:05 | disposition home or self-care (01) ==
LOC: EMR 00:44
DX: L29.9 Pruritus, unspecified (principal); E11.9 Type 2 diabetes mellitus without complications; I10 Essential (primary) hypertension
CPT/HCPCS: 99282